=== PATIENT | female | born 1950 | race Caucasian/White ===

== ENCOUNTER 2022-12-12 07:13 | Observation (INO) ==
--- NOTE | 2022-12-06 13:51 | Anesthesiology Consultation ---
Date of Service December 06, 2022 Assessment & Plan (1) Encounter for pre-operative examination: Chart Review Chart Review: Acceptable Risk for Surgery and Patient NOT seen in Pre Admission Testing - Check BSG AM DOS -COVID screening: Per PAT nursing assessment on 12/06/22. No known COVID-19 positive contacts or current COVID-19 related symptoms. Travel screen negative. Patient vaccinated for Covid. At surgeon discretion if preop Covid testing being done. History Surgery Operation Date: 12/12/22 08:40 Proposed Procedures p Robotic Laparoscopic Assisted Partial Nephrectomy, Possible Radical Nephrectomy - Julian Frost MD Height/Weight Height: 5 ft 3 in Weight: 81.647 kg Allergies Allergy/AdvReac Type Severity Reaction Status Date / Time No Known Allergies Allergy Verified 12/06/22 11:47 Medications Home Medications Medication Instructions Recorded Confirmed Last Taken alendronate 70 mg tablet (Fosamax) 70 mg PO WK 07/28/22 12/06/22 Unknown simvastatin 40 mg tablet 40 mg PO QPM #90 tabs 11/21/22 12/06/22 Unknown calcium carbonate 600 mg calcium 600 mg PO HS 12/06/22 12/06/22 Unknown (1,500 mg) tablet (Calcium) cholecalciferol (vitamin D3) 25 2,000 unit PO HS 12/06/22 12/06/22 Unknown mcg (1,000 unit) tablet (Vitamin D3) ezetimibe 10 mg tablet (Zetia) 10 mg PO HS 12/06/22 12/06/22 Unknown ferrous sulfate 325 mg (65 mg 325 mg PO QPM 12/06/22 12/06/22 Unknown iron) tablet glipizide 5 mg tablet 5 mg PO QAM 12/06/22 12/06/22 Unknown irbesartan 75 mg tablet 75 mg PO QPM 12/06/22 12/06/22 Unknown mecobalamin (vitamin B12) 1,000 1,000 mcg PO QPM 12/06/22 12/06/22 Unknown mcg chewable tablet rabeprazole 20 mg tablet,delayed 20 mg PO QAM 12/06/22 12/06/22 Unknown release (AcipHex) sertraline 100 mg tablet 150 mg PO HS 12/06/22 12/06/22 Unknown Past Medical History Medical History (Updated 12/06/22 @ 13:45 by Nereida Flores PA-C) Anemia History of Anxiety Chronic kidney disease, stage 3 (moderate) COPD (chronic obstructive pulmonary disease) Pt denies Depression Dyslipidemia GERD (gastroesophageal reflux disease) HTN (hypertension) Nausea and vomiting after administration of anesthetic agent Osteoporosis Pyloric stenosis Congenital, s/p repair Renal mass Spinal stenosis of lumbar region T2DM (type 2 diabetes mellitus) NIDDM Past Family History Family History Father Colorectal cancer Brother Prostate cancer Heart disease 3 brothers Myocardial infarction Mother Heart disease Uterine cancer Other No family history of adverse response to anesthesia Denies family history of Ovarian cancer Breast cancer Past Surgical History Surgical History History of appendectomy with hernia surgery History of bilateral cataract extraction History of bilateral tubal ligation History of bladder surgery bladder tack History of colonoscopy History of esophagogastroduodenoscopy (EGD) History of partial hysterectomy History of repair of pyloric stenosis History of tooth extraction partial upper/lower dentures Hx of breast reduction, elective 1984 Social History Smoking Status: Never smoker Do You Dip or Chew Tobacco: No Hx Alcohol Use: No Hx Substance Use: No Lab Results Anesthesia Preop Results Results Anesthesia Widget: WBC 5.54 K/ul (4.8-10.8) 11/27/22 Hgb 11.5 g/dl (12.0-16.0) L 11/27/22 Hct 35.9 % (34.1-44.9) 11/27/22 Plt 127 K/uL (130-400) L 11/27/22 Na 139 mmol/L (136-145) 11/27/22 K 4.7 mmol/L (3.5-5.1) 11/27/22 Cl 108 mmol/L (98-107) H 11/27/22 CO2 26 mmol/L (21-32) 11/27/22 BUN 28 mg/dl (6-23) H 11/27/22 Creat 1.09 mg/dl (0.6-1.2) 11/27/22 Glucose Level 154 mg/dl (70-99(Fasting)) H 11/27/22 Urine Color Yellow 11/27/22 Urine Appearance Clear (Clear) 11/27/22 Urine pH 5.5 (4.5-7.5) 11/27/22 Urine Specific [place] 1.019 (1.000-1.030) 11/27/22 Urine Protein Negative (Negative) 11/27/22 Urine Glucose (UA) Negative (Negative) 11/27/22 Urine Ketones Negative (Negative) 11/27/22 Urine Blood Negative (Negative) 11/27/22 Urine Nitrite Negative (Negative) 11/27/22 Urine Bilirubin Negative (Negative) 11/27/22 Urine Urobilinogen Negative (Negative) 11/27/22 Urine Leukocyte Esterase Trace (Negative) H 11/27/22 Urine WBC (Auto) 1-5 /hpf (0-5) 11/27/22 Urine RBC (Auto) 0-4 /hpf (0-4) 11/27/22 Urine Hyaline Casts (Auto) 1-5 /lpf (0-5) 11/27/22 Urine Epithelial Cells (Auto) >30 /lpf (0-5) H 11/27/22 Urine Bacteria (Auto) Negative (Negative) 11/27/22 Testing Laboratory Results Anemia stable from 09/202211/27/22= URINE CULTURE: More than 3 types of organisms present, all low counts probable mixed skin keke Electrocardiogram Date: 11/27/22 Findings: + SB @ (59bpm ) Otherwise normal EKG per cardio. Chest X-Ray Date: 04/28/22 No acute cardiopulmonary findings. Lung hyperinflation may be related to good inspiratory effort or underlying obstructive lung disease. Other Testing Abdomen/Pelvis CT 10/02/22= 3 cm enhancing solid lesion within lower pole of the right kidney. Renal cell carcinoma is the diagnosis of exclusion. No additional enhancing renal lesions. No evidence for metastatic disease within the abdomen or pelvis. Cirrhosis. Mild splenomegaly. Chest CT 10/02/22= No acute intrathoracic abnormality. No definite evidence of thoracic metastatic disease. Mild adenopathy of the lower chest and upper abdomen, likely benign. Cirrhosis with mild splenomegaly.
[~2022-12-12 07:13] MED LIST: ALBUMIN HUMAN 5% 12.5 GM/250 ML VIAL IV ONE; DEXAMETHASONE SOD INJ 4 MG/ML VIAL ONE; LIDOCAINE 2% 2 ML VIAL/AMP(20MG/ML) INFIL ONE; LR 15ML/HR IV SCH; MIDAZOLAM HCL 1 MG/ML 2ML VIAL ONE; ONDANSETRON INJ 2 MG/ML 2 ML VIAL ONE; PROPOFOL IV EMULSION 10 MG/ML 20 ML VIAL IV ONE; ROCURONIUM BROMIDE 10 MG/ML 5 ML VIAL IV ONE; ceFAZolin 2000MG 2,000 MG/15 ML SYR IV SCH; fentaNYL citrate PF 100 MCG/2 ML VIAL ONE
[2022-12-12] MEDS ORDERED: ePHEDrine sulfate 50 MG/ML AMP IV PRN ×2 (08:41→14:35)
[2022-12-12] MEDS ORDERED: HYDROmorphone INJ 2 MG/ML SYR/VIAL IV PRN (08:41)
[2022-12-12] MEDS ORDERED: ATROPINE SULFATE 0.1 MG/ML 10ML SYR IV PRN ×2 (08:41→14:35)
[2022-12-12] MEDS ORDERED: fentaNYL citrate PF 100 MCG/2 ML VIAL IV PRN (08:41)
[2022-12-12] MEDS ORDERED: GELATIN SPONGE SZ 100 ONE (08:49)
[2022-12-12] MEDS ORDERED: BUPIVACAINE 0.5 % 5 MG/1 ML MPF 30ML VIAL ONE (08:49)
--- NOTE | 2022-12-12 08:50 | History & Physical Report ---
Date of Service December 12, 2022 Assessment & Plan (1) Renal mass: (2) Renal mass of unknown nature: Plan We discussed the renal mass on her right kidney and the plan for right partial or radical nephrectomy. We reviewed risks and benefits of the surgery. She expressed understanding and willingness to proceed. History of Present Illness Primary Care Provider: Analia Puga DO This is a 72-year-old female followed by urology for a right-sided renal mass. CT scan demonstrated a lower pole, mostly endophytic mass concerning for renal cell carcinoma. Further staging studies were negative. She presents to the OR today for right robot-assisted partial nephrectomy, possible radical nephrectomy. She denies any changes in her health. Allergies Allergy/AdvReac Type Severity Reaction Status Date / Time No Known Allergies Allergy Verified 12/12/22 07:41 Home Medications Medication Instructions Recorded Confirmed Type alendronate 70 mg tablet (Fosamax) 70 mg PO WK 07/28/22 12/12/22 History simvastatin 40 mg tablet 40 mg PO QPM #90 tabs 11/21/22 12/12/22 Rx calcium carbonate 600 mg calcium 600 mg PO HS 12/06/22 12/12/22 History (1,500 mg) tablet (Calcium) cholecalciferol (vitamin D3) 25 2,000 unit PO HS 12/06/22 12/12/22 History mcg (1,000 unit) tablet (Vitamin D3) ezetimibe 10 mg tablet (Zetia) 10 mg PO HS 12/06/22 12/12/22 History ferrous sulfate 325 mg (65 mg 325 mg PO QPM 12/06/22 12/12/22 History iron) tablet glipizide 5 mg tablet 5 mg PO QAM 12/06/22 12/12/22 History irbesartan 75 mg tablet 75 mg PO QPM 12/06/22 12/12/22 History mecobalamin (vitamin B12) 1,000 1,000 mcg PO QPM 12/06/22 12/12/22 History mcg chewable tablet rabeprazole 20 mg tablet,delayed 20 mg PO QAM 12/06/22 12/12/22 History release (AcipHex) sertraline 100 mg tablet 150 mg PO HS 12/06/22 12/12/22 History Past Med/Surg History Medical History (Updated 12/12/22 @ 08:49 by Julian Frost MD) Anemia History of Anxiety Chronic kidney disease, stage 3 (moderate) COPD (chronic obstructive pulmonary disease) Pt denies Depression Dyslipidemia GERD (gastroesophageal reflux disease) HTN (hypertension) Nausea and vomiting after administration of anesthetic agent Osteoporosis Pyloric stenosis Congenital, s/p repair Renal mass Spinal stenosis of lumbar region T2DM (type 2 diabetes mellitus) NIDDM Surgical History History of appendectomy with hernia surgery History of bilateral cataract extraction History of bilateral tubal ligation History of bladder surgery bladder tack History of colonoscopy History of esophagogastroduodenoscopy (EGD) History of partial hysterectomy History of repair of pyloric stenosis History of tooth extraction partial upper/lower dentures Hx of breast reduction, elective 1984 Family History Father Colorectal cancer Brother Prostate cancer Heart disease 3 brothers Myocardial infarction Mother Heart disease Uterine cancer Other No family history of adverse response to anesthesia Denies family history of Ovarian cancer Breast cancer Social History Smoking Status: Never smoker Second Hand Exposure: Yes; Do You Dip or Chew Tobacco: No; Tobacco Cessation Education Requested by Patient: No Hx Alcohol Use: No Hx Substance Use: No Preferred Language: Surinamese Communication Ability: Effective Visual Impairment: No Limitations Hearing Ability: Hard of Hearing 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 Beliefs That Will Affect Care: None marital status: Current Living Situation: Spouse current occupational status: retired Other Information That Helps Us Care for You: No Feels Safe at Home: Yes Safety Concerns: Feels Safe At This Time Diet Comment: diabetic caffeine: Yes during the past year weight has: remained stable Dental Care, Regularly: Yes Physical Activity Frequency: Daily Seatbelt Use: always Sunscreen Use: Yes Assistive Devices: Denture - Upper, Denture - Lower and Glasses Assistive Devices Comment: partial upper/lower dentures Review of Systems 12 point review of systems negative except for otherwise indicated. Physical Exam Constitutional: well developed and well nourished; no acute distress Eyes: + anicteric sclerae; pupils not irregular Respiratory: normal respiratory effort; no respiratory distress, does not use accessory muscles and no cough Cardiovascular: well perfused Gastrointestinal (Abdomen): Inspection/Auscultation: abdomen normal to inspection; abdomen not distended Musculoskeletal: Extremities: extremities normal to inspection Skin: normal turgor; no rashes and no lesions Neurologic: moves all extremities and awake Psychiatric: Orientation: alert and oriented x 3 Results & Data ([facility]) Vital Signs (Past 12 Hours) Vital Signs Temp Pulse Resp Pulse Ox O2 Del Method 12/12/22 07:46 37.2 C 75 20 97 Room Air
[2022-12-12] MEDS ORDERED: KETAMINE 50 MG/5 ML SYRINGE ONE (09:39)
[2022-12-12] MEDS ORDERED: ROCURONIUM BROMIDE 10 MG/ML 5 ML VIAL IV ONE ×7 (09:41→12:20)
[2022-12-12] MEDS ORDERED: ePHEDrine sulfate 50 MG/ML SYR ONE (09:43)
[2022-12-12] MEDS ORDERED: HYDROmorphone INJ 2 MG/ML SYR/VIAL ONE (10:01)
[2022-12-12] MEDS ORDERED: SODIUM CHLORIDE 0.9% PF INJ 10 ML VIAL ONE (10:03)
[2022-12-12] MEDS ORDERED: ceFAZolin 330 MG/ML 1 GM VIAL ONE (11:43)
[2022-12-12] MEDS ORDERED: SUGAMMADEX SODIUM 200 MG/2 ML VIAL IV ONE (12:30)
[2022-12-12] MEDS ORDERED: SURGICEL ABSORB HEMOSTAT 2IN X 14IN TOP ONE (12:33)
[2022-12-12] MEDS ORDERED: ONDANSETRON INJ 2 MG/ML 2 ML VIAL ONE (12:43)
[2022-12-12] MEDS ORDERED: ceFAZolin 2000MG 2,000 MG/15 ML SYR IV STA (13:06)
[2022-12-12] MEDS ORDERED: fentaNYL citrate PF 100 MCG/2 ML VIAL ONE (13:44)
--- NOTE | 2022-12-12 14:29 | Operative Report ---
PG Post Operative Report Pre & Post Diagnosis Operation Date: 12/12/22 08:40 Pre-Op Diagnosis: Right Renal Mass Post-Op Diagnosis: Right Renal Mass I identified the patient and participated in the time-out.: Yes Procedure Operation Date: 12/12/22 08:40 Actual Procedures p Robotic Laparoscopic Assisted Right Radical Nephrectomy(Right) - Julian Frost MD Surgeon Julian Frost MD Director College BIRDIE Mckeon. Miko Amaro MD Estimated Blood Loss 20 Findings See Below Almost entirely endophytic mass appeared to be extending near the collecting system. Radical nephrectomy was therefore performed. Specimens Right kidney and proximal ureter Drains Mendez catheter per urethra Anesthesia Type General Complications none Disposition Accompanied Patient To Recovery: Yes Disposition: Recovery Room Indications This is a 72-year-old female previously seen by urology for a right-sided renal mass. Due to concern for malignancy, she presents to the OR today for surgical removal of the mass. Description of Procedure The patient was identified and informed consent was obtained. She was marked on the right side and was brought to the operating room where general anesthesia was initiated. She was placed in a flank position with the left side elevated. All pressure points were carefully padded. A timeout was then performed. A surgical marker was used to draw a line approximately 7 cm to the right of the umbilicus, in the mid clavicular area. Anticipated port sites were marked starting approximately 2 fingerbreadths below the costal margin. Subsequent ports were anticipated to be 6 to 7 cm spaced down this line. An incision was made at the second anticipated site, then dissection was carried down to the fascia. A Veress needle was used to obtain access to the peritoneum. Good position was confirmed with a negative aspiration, appropriate drop test and low opening insufflation pressure. The abdomen was then inflated with CO2 to 15 mmHg. The first robotic port was then placed and the camera was inserted. The abdominal cavity was surveyed. There was some adhesions of the ascending colon to the abdominal wall. There was also some flimsy adhesions near the liver and gallbladder. The remaining 3 robotic ports were placed under direct visualization. Laparoscopic lysis of adhesions was performed to free up the cephalad most port. A 12 mm surveyor's assistant port was then placed in the midline above the umbilicus. The robot was then docked. I reflected the colon along the white line of Toldt to expose Gerota's fascia. The layer overlying the kidney was thin and also adherent to Gerota's fascia, so as I was doing the reflection, I exposed the renal capsule as well. Prior to identifying the ureter, the psoas was encountered. The kidney was then retracted anteriorly and dissection carried upward. As I was doing this, the ureter was identified. Dissection was carried toward the renal hilum. There was a lower pole accessory artery and vein encountered. She had 1 main renal artery and 2 nearby renal veins. Adequate windows were dissected to facilitate placement of bulldog clamps on both vessels. I then turned my attention toward the renal mass. This was seen on CT scan near the lower pole of the kidney. Gerota's fascia was incised and the fat was dissected away to expose the capsule of almost the entire lower pole of the kidney. There was no obvious bulge to suggest the renal mass. The intraoperative ultrasound was then introduced and used to survey this area of the kidney. The mass appeared almost entirely endophytic and there was some tunneling of the margins under normal renal parenchyma. The mass appeared to be close to the collecting system. Based on these factors, I was concerned that it be challenging to perform a complete resection of the tumor and then subsequently reconstruction of the kidney. I elected to perform a radical nephrectomy. The [place] stapler was inserted by the surveyor's assistant port. Using vascular staple loads, the main renal artery was divided. The lower pole accessory vessels were subsequently divided. The remaining renal veins were divided last. Another staple load was used to come across the suspected adrenal artery in a cephalad fashion. The remaining attachments of the kidney were then freed up using bipolar and monopolar cautery. The ureter was identified, doubly clipped and divided. The kidney was then freed of all attachments. It was placed in an Endo Catch bag. The renal fossa was inspected. There was good hemostasis. Surgicel was applied to the hilum, the cephalad aspect as well as the lateral aspect. Final survey of the abdomen revealed good hemostasis and no injury to intra-abdominal contents. The robot was dedocked. The string from the Endo Catch bag was withdrawn through the right lower quadrant incision. The incision was then extended to a pproximately 7 cm and dissection was carried down. The peritoneum was entered sharply taking care not to injure any of the intra-abdominal contents. The specimen was extracted and was sent for analysis labeled as right renal mass. The incisions were then closed. The extraction site was closed using a running 2-0 Vicryl suture to reapproximate the peritoneum. Fascia was then closed using interrupted 0 Vicryl [id number]. The fascia and all incisions were anesthetized using half percent Marcaine. 3-0 Vicryl suture was used to reapproximate the subcutaneous fat in a running stitch. Skin was then closed using a running subcuticular 4-0 Monocryl. The surveyor's assistant port site was closed using a deep interrupted 0 Vicryl suture. All skin incisions were then closed using 4 Monocryl. The abdomen was cleaned and Dermabond was applied to all incisions. The patient was then awakened from anesthesia and brought to the PACU in stable condition. All sponge and instrument counts were correct at the end of the case. Of note, BIRDIE Mckeon, acted as bedside surveyor's assistant for the majority of the case, helping with initial positioning, access, retraction, dissection and with closing. Miko Amaro MD acted as bedside surveyor's assistant for the hilar dissection and firing of the stapler. I attest to the content of the Intraoperative Record and any orders documented therein. Any exceptions are noted below.
[2022-12-12] MEDS ORDERED: LABETALOL HCL IV 5 MG/ML 20ML IV ONE (14:35)
[2022-12-12] MEDS ORDERED: LABETALOL HCL IV 5 MG/ML 20ML IV PRN (14:35)
--- NOTE | 2022-12-12 14:36 | Anesthesiology Progress Note ---
Date of Service December 12, 2022 Anesthesia Post Procedure Vital Signs Vital Signs: Temp Pulse Pulse Resp BP Pulse Ox O2 Del Method 12/12/22 14:30 100 H 12 164/72 H 95 Oxymask 12/12/22 14:20 109 H 20 186/86 H 96 Oxymask 12/12/22 14:14 36.2 C L 98 H 18 182/81 H 97 Oxymask 12/12/22 07:46 37.2 C 75 20 97 Room Air O2 Flow Rate 12/12/22 14:30 5 12/12/22 14:20 9 12/12/22 14:14 9 12/12/22 07:46 Transfer of Care Handoff Completed per policy Notes Mental Status: alert / awake / arousable and participated in evaluation Patient Amnestic to Procedure: Yes Nausea / Vomiting: adequately controlled Pain: adequately controlled Airway Patency, RR, SpO2: stable & adequate BP & HR: stable & adequate Hydration State: stable & adequate Anesthetic Complications: no major complications apparent and Pt Satisfied with anesthetic care
[2022-12-12 15:27] LABS: BUN Creatinine Ratio 25.8 (10-20); Calcium 8.3 mg/dl (8.5-10.1); Creatinine Clr Calc Pharmacy 42.8 ml/min; Potassium 4.8 mmol/L (3.5-5.1)
[2022-12-12] MEDS ORDERED: HYDROmorphone INJ 0.5 MG/0.5 ML SYR IV PRN ×2 (15:33)
[2022-12-12] MEDS ORDERED: bisacodyL 5 MG TABEC PO PRN (15:33)
[2022-12-12] MEDS ORDERED: PHARMACY GLYCEMIC MGMT CONSULT PRN (15:33)
[2022-12-12] MEDS ORDERED: oxyCODONE HCL IR 5 MG TAB (IMMEDIATE RELEASE) PO PRN (15:33)
[2022-12-12] MEDS ORDERED: ONDANSETRON INJ 2 MG/ML 2 ML VIAL IV PRN (15:33)
[2022-12-12 15:34] LABS: Hematocrit (blood only) 31.2 % (37.0-47.0); Mean Corpuscular Hemoglobin 28.5 pg (25.0-34.0); Mean Corpuscular Hgb Conc 32.1 g/dL (32.0-36.0); Mean Corpuscular Volume 88.9 fL (80.0-100.0); Mean Platelet Volume 11.4 fL (9.4-12.4); Platelet Count 75 K/uL (130-400); RDW Coefficient of Variation 14.7 % (11.5-14.5); Red Blood Count 3.51 M/uL (4.20-5.40); White Blood Count 6.56 K/ul (4.8-10.8)
[2022-12-12] MEDS ORDERED: GLUCOSE 40% GEL 15 GM TUBE PO PRN (15:45)
[2022-12-12] MEDS ORDERED: CARBOHYDRATES FOR HYPOGLYCEMIA PO PRN (15:45)
[2022-12-12] MEDS ORDERED: GLUCOSE 10 TAB/TUBE PO PRN (15:45)
[2022-12-12] MEDS ORDERED: DEXTROSE 50% 50 ML SYRINGE IV PRN (15:45)
[2022-12-12] MEDS ORDERED: GLUCAGON FOR INJ 1 MG VIAL IM PRN (15:45)
[2022-12-12] MEDS ORDERED: LANTUS PER UNIT CHARGE SQ ONE (16:00)
[2022-12-12] MEDS: ACETAMINOPHEN 325 MG TAB PO SCH ×2 (16:17→20:30)
[2022-12-12] MEDS: oxyCODONE HCL IR 5 MG TAB (IMMEDIATE RELEASE) PO PRN (16:17)
[2022-12-12] MEDS: LACTATED RINGER'S 1,000 ML IV SCH (16:19)
[2022-12-12] MEDS: INSULIN ASPART PER UNIT CHARGE SC SCH ×2 (18:02→22:36)
[2022-12-12] MEDS: ceFAZolin 2000MG 2,000 MG/15 ML SYR IV SCH (18:04)
[2022-12-12] MEDS: DOCUSATE SODIUM 100 MG CAP PO SCH (20:30)
[2022-12-12] MEDS: HEPARIN SOD 5,000 UNIT/0.5 ML VIAL SQ SCH (20:32)
[2022-12-12] MEDS ORDERED: SERTRALINE HCL 50 MG TABLET PO SCH (21:00)
[2022-12-12] MEDS ORDERED: SIMVASTATIN 40 MG TAB PO SCH (21:00)
[2022-12-12] MEDS ORDERED: CALCIUM CARBONATE 1250MG TAB PO SCH (21:00)
[2022-12-12] MEDS ORDERED: FERROUS SULFATE 325 MG TAB PO SCH (21:00)
[2022-12-12] MEDS ORDERED: IRBESARTAN 75 MG TAB PO SCH (21:00)
[2022-12-12] MEDS ORDERED: EZETIMIBE 10 MG TABLET PO SCH (21:00)
[2022-12-12] MEDS ORDERED: CHOLECALCIFEROL 1,000 UNITS 25 MCG TAB PO SCH (21:00)
[2022-12-13] MEDS: LACTATED RINGER'S 1,000 ML IV SCH ×2 (01:27→11:33)
[2022-12-13] MEDS: ceFAZolin 2000MG 2,000 MG/15 ML SYR IV SCH (01:27)
[2022-12-13] MEDS: oxyCODONE HCL IR 5 MG TAB (IMMEDIATE RELEASE) PO PRN (01:33)
[2022-12-13] MEDS: ACETAMINOPHEN 325 MG TAB PO SCH ×2 (04:02→10:40)
--- NOTE | 2022-12-13 07:39 | Urology Progress Note ---
Date of Service December 13, 2022 Assessment & Plan (1) Renal mass of unknown nature: Plan: Doing well s/p right robotic laparoscopic nephrectomy on 12/12/2022. Suspect her shoulder pain is referred from the diaphragm and should resolve as she reabsorbs CO2 We will plan for Mendez catheter removal today She will have breakfast and try to ambulate. If she is still feeling well by this afternoon, we will tentatively plan for discharge home. Admission and Anticipated Discharge Date Admission Date: December 12, 2022 Subjective Feeling well overall Still having some right upper quadrant pain and right shoulder pain Denies incisional tenderness Tolerating food with no nausea or vomiting Has been out of bed to the chair, not much ambulating, mildly lightheaded with his transition Labs pending Physical Exam Physical Exam: Well-appearing, NAD Respiratory: Breathing comfortably on room air Gastrointestinal (Abdomen): Soft, appropriately tender to palpation. Incisions well approximated, Dermabond in place. Slight bruising around the right lower quadrant incision. Genitourinary: Mendez catheter in place draining clear yellow urine Results & Data ([facility]) Vital Signs (Past 12 Hours) Vital Signs Temp Pulse Pulse Resp BP Pulse Ox O2 Del Method 12/13/22 07:17 36.6 C 60 18 109/58 L 95 Room Air 12/13/22 05:47 36.4 C L 65 16 120/62 97 Nasal Cannula 12/13/22 01:51 36.7 C 72 16 135/64 97 Nasal Cannula 12/12/22 20:00 Nasal Cannula 12/12/22 21:53 37 C 75 18 157/84 H 93 Nasal Cannula O2 Flow Rate 12/13/22 07:17 12/13/22 05:47 2 12/13/22 01:51 2 12/12/22 20:00 2 12/12/22 21:53 2 PG Care Time/CCT Total # of Minutes Spent Total Time Spent with Patient: Total time spent is greater than 50% in coordination of care (as documented) at patient's floor/unit and/or counseling patient: Coding Level of Care Code None Diagnoses Renal mass of unknown nature N28.89
[2022-12-13 08:02] LABS: Basophils # (auto) 0.02 K/uL (0-0.2); Basophils % (auto) 0.2 %; Eosinophils # (auto) 0.01 K/uL (0-0.50); Eosinophils % (auto) 0.1 %; Hematocrit (blood only) 30.9 % (37.0-47.0); Hemoglobin 9.9 g/dl (12.0-16.0); Immature Granulocytes # (auto) 0.04 K/uL (0.01-0.20); Immature Granulocytes % (auto) 0.5 %; Lymphocytes # (auto) 1.39 K/uL (1.2-3.4); Lymphocytes % (auto) 16.2 %; Mean Corpuscular Hemoglobin 28.2 pg (25.0-34.0); Mean Platelet Volume 11.5 fL (9.4-12.4); Monocytes # (auto) 0.64 K/uL (0.11-0.59); Monocytes % (auto) 7.5 %; Neutrophils # (auto) 6.49 K/uL (1.40-6.50); Neutrophils % (auto) 75.5 %; Platelet Count 91 K/uL (130-400); Red Blood Count 3.51 M/uL (4.20-5.40); White Blood Count 8.59 K/ul (4.8-10.8)
[2022-12-13 08:08] LABS: Estimated Average Glucose 143 mg/dl; Hemoglobin A1C 6.6 % (4.5-5.6)
[2022-12-13 08:12] LABS: BUN Creatinine Ratio 19.5 (10-20); Calcium 8.3 mg/dl (8.5-10.1); Creatinine Clr Calc Pharmacy 32.4 ml/min; Est GFR (African American) 36.3 ml/min; Est GFR (Non-African American) 31.4 ml/min; Potassium 4.8 mmol/L (3.5-5.1)
[2022-12-13] MEDS: DOCUSATE SODIUM 100 MG CAP PO SCH (08:33)
[2022-12-13] MEDS: HEPARIN SOD 5,000 UNIT/0.5 ML VIAL SQ SCH (08:33)
[2022-12-13] MEDS: INSULIN ASPART PER UNIT CHARGE SC SCH ×2 (08:34→12:35)
[2022-12-13] MEDS ORDERED: PANTOprazole 40 MG TAB PO SCH (09:00)
--- NOTE | 2022-12-13 10:38 | Pharmacy Report ---
Pharmacy Glycemic Short Note 2 - Date of Service December 13, 2022 - Glycemic Short BSG Results (Last 24 hours): 12/12/22 12/12/22 12/12/22 11:12 14:18 14:50 Glucose 236 H POC Glucose 195 H 194 H 12/12/22 12/12/22 12/13/22 17:14 20:58 07:22 Glucose 98 POC Glucose 198 H 125 H 12/13/22 08:11 Glucose POC Glucose 106 H OUTPATIENT ANTIDIABETIC REGIMEN: * Glipizide 5 mg QAM ASSESSMENT: * Abby Izquierdo 72-year-old patient who presents as post-op from a partial nephrectomy for a right-sided renal mass. Patient's last A1C was 6.6% on 11/12/22 and manages their diabetes outpatient with an oral agent (glipizide 5 mg QAM). It appears patient received one dose of IV steroids in the operating room (dexamethasone 4 mg IV once on 12/12/22). A one time dose of Lantus 20 units was given at dinner time yesterday. Bolus insulin parameters were loosened today (CF: 30, CR: 10) PLAN FOR INPATIENT GLYCEMIC CONTROL: * Hold outpatient oral diabetes medications * Basal insulin * Lantus 20 units SQ once at dinner time on 12/12/22 * Bolus insulin * NovoLog per scale ACHS or Q6hrs while NPO * Goal Range: Low 110 mg/dL - High 140 mg/dL * Correction Factor: 30 mg/dL/unit * Nutritional / Prandial insulin per carb ratio of 1 unit per 10 grams CHO consumed
--- NOTE | 2022-12-13 12:20 | Discharge Summary ---
Date of Service December 13, 2022 Admission HPI Per Admitting Provider This is a 72-year-old female followed by urology for a right-sided renal mass. CT scan demonstrated a lower pole, mostly endophytic mass concerning for renal cell carcinoma. Further staging studies were negative. She presents to the OR today for right robot-assisted partial nephrectomy, possible radical nephrectomy. She denies any changes in her health. Admission Exam Per Admitting Provider Physical Exam Constitutional: well developed and well nourished; no acute distress Eyes: + anicteric sclerae; pupils not irregula r Respiratory: normal respiratory effort; no respiratory distress, does not use accessory muscles and no cough Cardiovascular: well perfused Gastrointestinal (Abdomen): Inspection/Auscultation: abdomen normal to inspection; abdomen not distended Musculoskeletal: Extremities: extremities normal to inspection Skin: normal turgor; no rashes and no lesions Neurologic: moves all extremities and awake Psychiatric: Orientation: alert and oriented x 3 Principal Diagnosis Renal Mass Discharge Exam Physical Exam: Well-appearing, NAD Respiratory: Breathing comfortably on room air Gastrointestinal (Abdomen): Soft, appropriately tender to palpation. Incisions well approximated, Dermabond in place. Slight bruising around the right lower quadrant incision. Genitourinary: Mendez catheter in place draining clear yellow urine Discharge Data Allergies Allergy/AdvReac Type Severity Reaction Status Date / Time No Known Allergies Allergy Verified 12/12/22 07:41 Procedures Performed Operation Date: 12/12/22 08:40 Actual Procedures p Robotic Laparoscopic Assisted Right Radical Nephrectomy(Right) - Julian aburto MD Hospital Course (1) Renal mass of unknown nature: Doing well s/p right robotic laparoscopic nephrectomy on 12/12/2022. Suspect her shoulder pain is referred from the diaphragm and should resolve as she reabsorbs CO2 We will plan for Mendez catheter removal today She will have breakfast and try to ambulate. If she is still feeling well by this afternoon, we will tentatively plan for discharge home. Patient reassessed at 1100. Patient continues to progress as expected. She is tolerating diet. Voided after catheter removal. Pain is well managed. Patient feels ready for discharge today - orders placed. Expected clinical course reviewed, all questions answered. Total Time Total Time Spent Total Time Spent (In Minutes): 29 Discharge Plan Discharge Items Patient Disposition: Home - Self-Care Reason For Visit: Renal Mass Discharge Diagnosis: Right renal mass, concerning for malignancy Activity: Per Instructions section Lifting: No more than 10 pounds Bathing Comment: Okay to shower after discharge Sexual Activity: Wait until after follow-up appointment Exercise/Sports: Wait until after follow-up appointment Driving/Machine Use: No driving while taking prescription pain medication Non-emergency contact: Urologist Call non-emergency contact if: you have any medication questions, your pain is not controlled, your temperature is above 101 and your wound has increased drainage Follow-up/Referrals: Analia Puga, [Primary Care Provider] - Diet: Carb Consistent or DM2 Addtl Attending Provider Instructions: The surgery you had was: Robot-assisted radical nephrectomy Please take all medications as prescribed and keep all follow-ups as scheduled. Please call our office at [phone] with any questions, concerns or need to reschedule appointments for any reason. We are happy to assist you. Medications: Take Tylenol every 6 hours for baseline pain control If you are prescribed narcotics such as oxycodone, please take it according to the instructions on the label. Activity/Recovering at home: We recommend having someone with you for the first few days after surgery to help care for you. It is okay to shower tomorrow. Please avoid swimming, bathing or using hot tub until incisions are well healed. Avoid driving until you are not requiring pain medication any further. Walk at least a few times a day. Increase your distance, as you feel able. Stairs in your home are okay. Please avoid strenuous or sexual activity until your follow-up. No lifting anything more than 10 pounds for 6 to 8 weeks Use a stool softener (i.e. Colace) to prevent constipation, especially the first two weeks post operatively. You should not be straining/pushing to have a bowel movement. Follow-up: We will have a phone visit or office visit in 1 week to go over pathology results and check in We will have you come to the urology office in 4-6 weeks for a wound check. Call [facility] at [phone] if you experience: Chest pain or trouble breathing (call [phone] or go to the hospital). Fever of 101F or higher Symptoms of infection at incision site, including redness or swelling, warmth, or bad-smelling drainage Pain that is not controlled with medicines Pending Studies at Discharge: Yes (pathology) Stand-Alone Forms: My [facility], Pain - Opioid Pain Management Medications and DC Order Prescriptions: New docusate sodium [Colace] 100 mg capsule 100 mg PO BID Qty: 60 0RF Rx Instructions: Take twice daily for 2 weeks, then as needed for constipation. oxycodone 5 mg tablet 5 mg PO Q8H PRN (Reason: pain) Qty: 7 0RF Rx Instructions: take as directed for breakthrough pain Continued simvastatin 40 mg tablet 40 mg PO QPM Qty: 90 0RF alendronate [Fosamax] 70 mg tablet 70 mg PO WK Label Comments: takes on rabeprazole [AcipHex] 20 mg tablet,delayed release (DR/EC) 20 mg PO QAM sertraline 100 mg tablet 150 mg PO HS Rx Instructions: TAKE 1.5 TABS DAILY ferrous sulfate 325 mg (65 mg iron) tablet 325 mg PO QPM irbesartan 75 mg tablet 75 mg PO QPM glipizide 5 mg tablet 5 mg PO QAM ezetimibe [Zetia] 10 mg tablet 10 mg PO HS mecobalamin (vitamin B12) 1,000 mcg tablet,chewable 1,000 mcg PO QPM calcium carbonate [Calcium 600] 600 mg calcium (1,500 mg) Tablet 600 mg PO HS cholecalciferol (vitamin D3) [Vitamin D3] 25 mcg (1,000 unit) Tablet 2,000 unit PO HS Discharge Orders: Discharge Order (Routine); Ordered 12/13/22 Ordered By: Em Miller/Other Patient Handouts: Managing Type 2 Diabetes, Nephrectomy Dc Admission Data Admit Date/Time: 12/12/22 14:03 Attending Provider: Julian Frost Admit Provider: Julian Frost Primary Care Provider: Analia Puga Other Interventions: Discharge Summary Assessment (RN) Last Done: 12/13/22 12:49 Coding Level of Care Code HOSP INP/OBS DISCH 30 MIN/LESS Diagnoses Renal mass of unknown nature N28.89
== END 2022-12-13 14:16 | disposition home or self-care (01) ==
LOC: ASU 07:13 → 3N 14:03 → INTOOBSV 14:03
DX: C64.1 Malignant neoplasm of right kidney, except renal pelvis; Z80.42 Family history of malignant neoplasm of prostate; Z80.0 Family history of malignant neoplasm of digestive organs; Z79.899 Other long term (current) drug therapy; Z82.49 Family history of ischemic heart disease and other diseases of the circulatory system

== ENCOUNTER 2025-01-13 05:58 | Observation (INO) ==
--- NOTE | 2024-12-16 16:17 | PAT Medication Instructions ---
Medication Instructions Date of Service December 16, 2024 Home Medications Medication Instructions Recorded albuterol sulfate 90 mcg/actuation See Rx Instructions inhalation 04/01/24 aerosol inhaler (Ventolin HFA) .COMPLEX PRN shortness of breath or wheezing #18 grams tramadol 50 mg tablet 50 mg PO Q8H PRN pain #30 tabs 04/01/24 empagliflozin 10 mg tablet 10 mg PO QAM #90 tabs 06/27/24 (Jardiance) simvastatin 40 mg tablet 40 mg PO QPM #90 tabs 08/18/24 ezetimibe 10 mg tablet (Zetia) 10 mg PO HS #90 tabs 09/03/24 walker #1 ea 10/13/24 duloxetine 30 mg capsule,delayed 30 mg PO DAILY #90 caps 10/21/24 release rabeprazole 20 mg tablet,delayed 20 mg PO QAM #90 tabs 12/15/24 release (AcipHex) anastrozole 1 mg tablet 1 mg PO QAM vitamins A,C,O-eqll-huwybh 4,296 mcg-226 mg-90 mg capsule (PreserVision AREDS) 1 cap PO BID ferrous sulfate 325 mg (65 mg iron) tablet 325 mg PO DAILY albuterol sulfate 90 mcg/actuation aerosol inhaler (Ventolin HFA) See Rx Instructions inhalation .COMPLEX PRN shortness of breath or wheezing tramadol 50 mg tablet 50 mg PO Q8H PRN pain empagliflozin 10 mg tablet (Jardiance) 10 mg PO QAM simvastatin 40 mg tablet 40 mg PO QPM ezetimibe 10 mg tablet (Zetia) 10 mg PO HS calcium citrate 500 mg (2,376 mg) effervescent tablet 1,200 mg PO DAILY duloxetine 30 mg capsule,delayed release 30 mg PO DAILY mecobalamin (vitamin B12) 1,000 mcg chewable tablet 1,000 mcg PO .QOD sodium zirconium cyclosilicate 10 gram oral powder packet (Lokelma) 10 g PO .COMPLEX cholecalciferol (vitamin D3) 25 mcg (1,000 unit) capsule 25 mcg PO DAILY d-mannose 3 cap PO DAILY rabeprazole 20 mg tablet,delayed release (AcipHex) 20 mg PO QAM Continue as directed duloxetine 30 mg capsule,delayed release 30 mg PO DAILY ASK your prescriber and surgeon anastrozole 1 mg tablet 1 mg PO QAM STOP taking 2 weeks before surgery vitamins A,C,U-pvot-svijan 4,296 mcg-226 mg-90 mg capsule (PreserVision AREDS) 1 cap PO BID d-mannose 3 cap PO DAILY STOP taking 3 days before surgery empagliflozin 10 mg tablet (Jardiance) 10 mg PO QAM DO NOT take the morning of surgery ferrous sulfate 325 mg (65 mg iron) tablet 325 mg PO DAILY calcium citrate 500 mg (2,376 mg) effervescent tablet 1,200 mg PO DAILY mecobalamin (vitamin B12) 1,000 mcg chewable tablet 1,000 mcg PO .QOD sodium zirconium cyclosilicate 10 gram oral powder packet (Lokelma) 10 g PO .COMPLEX cholecalciferol (vitamin D3) 25 mcg (1,000 unit) capsule 25 mcg PO DAILY Take morning of surgery With a small sip of water, OTHERWISE NOTHING TO EAT OR DRINK AFTER MIDNIGHT: albuterol sulfate 90 mcg/actuation aerosol inhaler (Ventolin HFA) See Rx Instructions inhalation .COMPLEX PRN shortness of breath or wheezing (use if needed; please bring with you to hospital day of surgery if possible) tramadol 50 mg tablet 50 mg PO Q8H PRN pain (if needed) rabeprazole 20 mg tablet,delayed release (AcipHex) 20 mg PO QAM Take evening before surgery albuterol sulfate 90 mcg/actuation aerosol inhaler (Ventolin HFA) See Rx Instructions inhalation .COMPLEX PRN shortness of breath or wheezing (if needed) tramadol 50 mg tablet 50 mg PO Q8H PRN pain (if needed) simvastatin 40 mg tablet 40 mg PO QPM ezetimibe 10 mg tablet (Zetia) 10 mg PO HS Other Notes If you have any questions please call us at [phone] or [phone] or [phone] or [phone]
--- NOTE | 2024-12-24 14:01 | Anesthesiology Consultation ---
Date of Service December 24, 2024 Assessment & Plan (1) Encounter for pre-operative examination: Plan - check BSG am DOS. - PCP office note 12/14/24 [place]: "...Hypotension: Resolved w/ holding irbesartan. Reviewed her BP readings all in good range, normal BP in office today. Will remain off irbestartan...Dizziness: Resovled. Related to low BP, care as above. Syncope: Resolved. Likely vasovagal in setting of low BP. reviewed echo and heart monitor results with patient today in office...scheduled for lumbar laminectomy 01/13/35...acceptable risk to proceed with surgery pending normal preop testing..." BP 136/63 at PCP office visit. 108/62 in PAT. Patient called office and said home reading was 122/65 this afternoon, usually running 120- 130s/60s at home. - hair piece: patient inquired if this needed to not be on for DOS, I advised her that was the recommendation but if unable to coordinate this, the OR would further discuss and likely have her sign a waiver. She verbalized understanding and denied questions or concerns. Chart Review Chart Review: Acceptable Risk for Surgery and Patient seen in Pre Admission Testing Teaching & Discussion Pre-Anesthesia Teaching/Discussion Notes: Instructed NPO after midnight before surgery, except medications with 15 cc of water. Medication instructions provided according to the PAT guidelines. History Surgery Operation Date: 01/13/25 07:15 Proposed Procedures p L1-L2, L4-L5 Lumbar Laminectomy - Hari Freed MD Height/Weight Height: 5 ft 3 in Weight: 70.8 kg Allergies Allergy/AdvReac Type Severity Reaction Status Date / Time acetaminophen [From Percocet] AdvReac Intermediate nausea and Verified 12/24/24 13:55 vomiting oxycodone [From Percocet] AdvReac Intermediate nausea and Verified 12/24/24 13:55 vomiting amoxicillin [From Augmentin] AdvReac Unknown Diarrhea Unverified 12/24/24 12:09 clavulanic acid AdvReac Unknown Diarrhea Unverified 12/24/24 12:09 [From Augmentin] Medications Home Medications Medication Instructions Recorded Confirmed Last Taken Citus Data true metrix test strips 09/10/23 12/24/24 Unknown anastrozole 1 mg tablet 1 mg PO QAM 12/06/23 12/24/2424 vitamins A,C,B-meko-zxopgx 4,296 1 cap PO BID 12/06/23 12/24/24 12/19/23 mcg-226 mg-90 mg capsule (PreserVision AREDS) ferrous sulfate 325 mg (65 mg 325 mg PO DAILY 01/22/24 12/24/24 Unknown iron) tablet albuterol sulfate 90 mcg/actuation See Rx Instructions inhalation 04/01/24 12/24/24 Unknown aerosol inhaler (Ventolin HFA) .COMPLEX PRN shortness of breath or wheezing #18 grams tramadol 50 mg tablet 50 mg PO Q8H PRN pain #30 tabs 04/01/24 12/24/24 Unknown empagliflozin 10 mg tablet 10 mg PO QAM #90 tabs 06/27/24 12/24/24 Unknown (Jardiance) simvastatin 40 mg tablet 40 mg PO QPM #90 tabs 08/18/24 12/24/24 Unknown ezetimibe 10 mg tablet (Zetia) 10 mg PO HS #90 tabs 09/03/24 12/24/24 Unknown calcium citrate 500 mg (2,376 mg) 1,200 mg PO DAILY 09/15/24 12/24/24 Unknown effervescent tablet walker #1 ea 10/13/24 12/24/24 Unknown duloxetine 30 mg capsule,delayed 30 mg PO DAILY #90 caps 10/21/24 12/24/24 Unknown release mecobalamin (vitamin B12) 1,000 1,000 mcg PO .QOD 11/18/24 12/24/24 Unknown mcg chewable tablet sodium zirconium cyclosilicate 10 10 g PO .COMPLEX 11/18/24 12/24/24 Unknown gram oral powder packet (Lokelma) cholecalciferol (vitamin D3) 25 25 mcg PO DAILY 11/26/24 12/24/24 Unknown mcg (1,000 unit) capsule d-mannose 3 cap PO DAILY 12/12/24 12/24/24 Unknown rabeprazole 20 mg tablet,delayed 20 mg PO QAM #90 tabs 12/15/24 12/24/24 Unknown release (AcipHex) Past Medical History Medical History (Updated 12/24/24 @ 14:53 by Nida Inman PA-C) 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 Anxiety Chronic kidney disease (CKD), stage IV (severe) COPD (chronic obstructive pulmonary disease) pt denies- states rare use of rescue inhaler, mostly if "hot and humid" last used several yrs ago per pt Depression Diabetes DISH (diffuse idiopathic skeletal hyperostosis) Dyslipidemia Episode of syncope 11/13/24 > was seen at [place] [facility] >> r/t hypotension >> eval by pcp, hypertensive medications discontinued, no issues since GERD (gastroesophageal reflux disease) controlled, stable per pt History of anemia History of blood transfusion reaction (~1984) patient states was stopped due to sudden fever and extensive rash History of COVID-19 (~10/2023) 11/06/23, home test, lingering occasional cough History of hypertension History of renal cell cancer treated surgically. Right nephrectomy 12/12/22 [facility]. Hx of breast cancer (2022) left-denies limb restriction Nausea and vomiting after administration of anesthetic agent does well with IV predosing Osteoarthritis Osteoporosis Peripheral neuropathy hands and feet Scoliosis of lumbar spine Solitary kidney, acquired left Thrombocytopenia chronic to chart review Patient denies h/o stroke, seizures, heart attack, heart failure, or blood clots/DVTs. Exercise / Class Metabolic Activity II 4-5 Yardwork/Stairs/Walk up hill (occasional shortness of breath if experiencing increased back pain, denies chest discomfort with one flight of stairs) Past Family History Family History Father Colorectal cancer Cancer Heart disease Hypertension Brother Prostate cancer Myocardial infarction Heart disease Cancer Prostate Mother Uterine cancer Cancer Uterine Heart disease Daughter Clotting disorder Grandmother Diabetes Other No family history of adverse response to anesthesia Denies family history of Ovarian cancer Breast cancer Past Surgical History Surgical History (Updated 12/24/24 @ 14:53 by Nida Inman PA-C) History of appendectomy with hernia surgery History of bilateral cataract extraction History of bilateral tubal ligation History of bladder surgery bladder tack History of colonoscopy History of esophagogastroduodenoscopy (EGD) History of nephrectomy right History of partial hysterectomy History of repair of pyloric stenosis infancy History of tooth extraction partial upper/lower dentures Hx of breast reduction, elective 1984 Status post left breast lumpectomy (10/22/23) Left Breast Lumpectomy with Cassie Rn Transport, Left [place] Lymph Node Biopsy(Left) - Shandra Celis DO Status post left breast lumpectomy (12/20/23) Left Breast Cancer Re-Excision of Margins(Left) - Shandra Celis, Past Anesthesia History No Hx of Anesthesia Complications and No Family Hx of Anesthesia Complications History of PONV No Hx of Motion Sickness and History of PONV (does well with IV pre-dosing) Social History Smoking Status: Never smoker Do You Dip or Chew Tobacco: No Hx Alcohol Use: No Hx Substance Use: No substance use type: does not use Review of Systems Snoring, denies witnessed apneas. Denies fever, chills, cough, wheezing, dizziness/lightheadedness, visual changes or palpitations. Physical Exam Vital Signs Vitals BP 108/62 P 65 TEMP 98.0 SP02 96% on RA RESP 19 Physical Patient resting comfortably in chair in no acute distress, alert and oriented, responding appropriately throughout visit Full cervical extension range of motion without pain TMD 3.5 finger breadths Mallampati Score 2 Dentition: upper partial and full lower dentures, denies chipped or loose teeth, caps/crowns, implants or bridges Lungs: normal respiratory effort. Good air movement, clear throughout to auscultation, no adventitious breath sounds Cardiac: regular rate and rhythm, no murmurs noted Carotid arteries: negative bruit bilat Lab Results Anesthesia Preop Results Results Anesthesia Widget: WBC 4.94 K/ul (4.8-10.8) 11/18/24 Hgb 11.7 g/dl (12.0-16.0) L 11/18/24 Hct 35.4 % (37.0-47.0) L 11/18/24 Plt 119 K/uL (130-400) L 11/18/24 Na 140 mmol/L (136-145) 11/18/24 K 4.6 mmol/L (3.5-5.1) 11/18/24 Cl 106 mmol/L (98-107) 11/18/24 CO2 27 mmol/L (21-32) 11/18/24 BUN 37 mg/dl (6-23) H 11/18/24 Creat 1.79 mg/dl (0.6-1.2) H 11/18/24 Glucose Level 105 mg/dl (70-99(Fasting)) H 11/18/24 PT 11.3 Seconds (9.0-12.0) 12/24/24 PTT 25 Seconds (21-31) 12/24/24 INR 1.0 (0.9-1.1) 12/24/24 HA1c 6.2 % (4.5-5.6) H 12/24/24 Blood Type A Positive 12/24/24 Antibody Screen NEGATIVE 12/24/24 Testing Chest X-Ray Date: 11/13/24 *1view* No plain film evidence of an acute cardiopulmonary process. Echocardiogram Date: 12/04/24 EF 55-60% No LV regional wall motion abnormalities Mild mitral regurgitation Other Testing Cardiac event monitor 12/10/24 Primary rhythm was sinus rhythm HR min 52 bpm, avg 68 bpm, max 152 bpm SVE burden 0.2% SV arrhythmias 36 events, longest 9 beats, fastest event 152 bpm PVC burden < 0.01% 2 disparate morphologies Carotid doppler 12/04/24 > 50% stenosis ICAs bilat
[2025-01-13] MEDS: LR 60ML/HR IV SCH (06:36)
[2025-01-13] MEDS: ACETAMINOPHEN 500 MG TAB PO SCH (06:37)
[2025-01-13] MEDS: GABAPENTIN 300 MG CAP PO SCH (06:37)
[2025-01-13] MEDS: LR 15ML/HR IV SCH (06:37)
[2025-01-13] MEDS ORDERED: MIDAZOLAM HCL 1 MG/ML 2ML VIAL ONE (06:58)
[2025-01-13] MEDS ORDERED: ROCURONIUM BROMIDE 10 MG/ML 5 ML VIAL IV ONE (06:58)
[2025-01-13] MEDS ORDERED: REMIFENTANIL HCL 1 MG VIAL IV ONE (06:58)
[2025-01-13] MEDS ORDERED: fentaNYL citrate PF 100 MCG/2 ML VIAL ONE (06:58)
[2025-01-13] MEDS ORDERED: LIDOCAINE 2% 2 ML VIAL/AMP(20MG/ML) INFIL ONE (07:02)
[2025-01-13] MEDS ORDERED: LIDOCAINE 2% 20 MG/ML 5 ML SYR IV ONE (07:03)
--- NOTE | 2025-01-13 07:13 | History & Physical Bridge Note ---
Date of Service January 13, 2025 History & Physical Bridge Note I have examined the patient, reviewed the History & Physical and in the interval since the performance of the History & Physical I have noted the following changes of clinical significance: no changes noted
[2025-01-13] MEDS ORDERED: HYDROmorphone INJ 2 MG/ML SYR/VIAL ONE (07:39)
[2025-01-13] MEDS: ceFAZolin 2000MG 2,000 MG/15 ML SYR IV SCH (07:40)
[2025-01-13] MEDS ORDERED: DEXAMETHASONE SOD INJ 4 MG/ML VIAL ONE (08:10)
[2025-01-13] MEDS ORDERED: SUGAMMADEX SODIUM 200 MG/2 ML VIAL IV ONE (08:41)
[2025-01-13] MEDS ORDERED: ONDANSETRON INJ 2 MG/ML 2 ML VIAL ONE (08:41)
[2025-01-13] MEDS: FLOSEAL HEMOSTATIC MATRIX 10ML TOP ONE (10:55)
[2025-01-13] MEDS: VANCOMYCIN HCL 1000MG/20ML VIAL ONE (10:55)
[2025-01-13] MEDS: THROMBIN 5000 UNITS KIT ONE (10:56)
[2025-01-13] MEDS: GELATIN SPONGE 12-7MM ONE (10:56)
[2025-01-13] MEDS: methylPREDNISolone acetate 40 MG/ML VIAL ONE (10:56)
[2025-01-13] MEDS: BUPIVACAINE/EPINEPHRINE 0.5% MPF 1:200,000 30 ML VIAL ONE (10:57)
--- NOTE | 2025-01-13 11:23 | Post Operative Brief Note ---
PG Immediate Post Op with CF Date of Surgery January 13, 2025 Pre & Post Diagnosis Operation Date: 01/13/25 07:30 Pre-Op Diagnosis: Lumbar stenosis with neurogenic claudication Post-Op Diagnosis: Lumbar stenosis with neurogenic claudication I identified the patient and participated in the time-out.: Yes Procedure Operation Date: 01/13/25 07:30 Actual Procedures p L1-L2, L2-L3, L4-L5 Lumbar Laminectomy(Not Applicable) - Hari Freed MD Surgeon Hari Freed MD Information Systems Security Manager Sumanth Blanton Estimated Blood Loss 100 Findings Consistent with Post-Op Diagnosis Specimens Specimen Description: No specimen per surgeon Drains Tate Catheter (16fr tate inserted without difficulty prior to procedure by Isabella Cox RN. Yellow urine noted. To be discontinued at end of procedure.)
[2025-01-13] MEDS ORDERED: HYDROmorphone INJ 0.5 MG/0.5 ML SYR IV PRN (11:25)
[2025-01-13] MEDS ORDERED: NALOXONE HCL 0.4 MG/1 ML VIAL/CARP IV PRN (11:25)
[2025-01-13] MEDS ORDERED: ONDANSETRON 4 MG OD TAB PO PRN (11:25)
[2025-01-13] MEDS ORDERED: PROMETHAZINE 12.5 MG/50.5 ML BAG IV PRN (11:25)
[2025-01-13] MEDS ORDERED: hydrOXYzine HCl 25 MG TAB PO PRN (11:25)
[2025-01-13] MEDS ORDERED: ALUMINUM/MAGNESIUM SUSP 30 ML UDC PO PRN (11:25)
[2025-01-13] MEDS ORDERED: MAGNESIUM HYDROXIDE SUSP 30 ML UDC PO PRN (11:25)
[2025-01-13] MEDS ORDERED: bisacodyL 10 MG SUPP PR PRN (11:25)
[2025-01-13] MEDS ORDERED: METOCLOPRAMIDE HCL INJ 5 MG/ML 2 ML VIAL IV PRN (11:25)
[2025-01-13] MEDS ORDERED: DO NOT ADMINISTER PNEUMOCOCCAL VACCINE PRN (11:25)
[2025-01-13] MEDS ORDERED: ACETAMINOPHEN 500 MG TAB PO PRN (11:25)
[2025-01-13] MEDS ORDERED: LORazepam 2 MG/1 ML VIAL IV PRN (11:25)
[2025-01-13] MEDS ORDERED: SOD PHOSPHATE/SOD BIPHOSPHATE ENEMA 132 ML BTL PR PRN (11:25)
[2025-01-13] MEDS ORDERED: ACETAMINOPHEN 1,000 MG/100 ML VIAL IV PRN (11:25)
[2025-01-13] MEDS ORDERED: DO NOT ADMINISTER FLU VACCINE PRN (11:25)
[2025-01-13] MEDS ORDERED: LORazepam 0.5 MG TAB PO PRN (11:25)
[2025-01-13] MEDS ORDERED: diphenhydrAMINE Capsule 25 MG CAP PO PRN (11:25)
[2025-01-13] MEDS ORDERED: FAMOTIDINE 20 MG TAB PO PRN (11:25)
[2025-01-13] MEDS ORDERED: ATROPINE SULFATE 0.1 MG/ML 10ML SYR IV PRN (11:31)
[2025-01-13] MEDS ORDERED: PROMETHAZINE HCL 6.25 MG in SODIUM CHLORIDE 0.9% 50 ML IV PRN (11:31)
[2025-01-13] MEDS: fentaNYL citrate PF 100 MCG/2 ML VIAL IV PRN (11:31)
[2025-01-13] MEDS ORDERED: ePHEDrine sulfate 50 MG/ML AMP IV PRN (11:31)
[2025-01-13] MEDS ORDERED: ONDANSETRON INJ 2 MG/ML 2 ML VIAL IV PRN (11:31)
--- NOTE | 2025-01-13 11:43 | Fluoroscopy Report ---
FL spine 1V any level CLINICAL HISTORY: L1-L2, L4-L5 LUMBAR LAMINECTOMY COMPARISON STUDY: MR lumbar spine 11/23/2024 FLUOROSCOPY TIME: 46.6 seconds FLUOROSCOPY IMAGES: 4 EXPOSURE DOSE: 26.37 mGy FINDINGS: Retractors project over the upper lumbar spine. A surgical sponge projects posterior to the L5-S1 junction. Multilevel intervertebral disc space narrowing and spondylotic spurring redemonstrat ed. Note that the images were submitted following completion of the surgery. IMPRESSION: Fluoroscopic assistance as above. ACT 112: Negative or not required by law. Electronically signed by: Stanton Bueno M.D. 01/13/2025 11:41 AM
[2025-01-13] MEDS: HYDROmorphone INJ 2 MG/ML SYR/VIAL IV PRN (12:02)
[2025-01-13] MEDS: fentaNYL citrate PF 100 MCG/2 ML VIAL ONE (12:10)
[2025-01-13] MEDS ORDERED: ALBUTEROL HFA 8 GM INHALER INH PRN (12:58)
[2025-01-13] MEDS ORDERED: WALKER SCH (12:58)
[2025-01-13] MEDS: HYDROmorphone INJ 2 MG/ML SYR/VIAL ONE (13:06)
--- NOTE | 2025-01-13 13:11 | Consultation ---
Date of Consultation January 13, 2025 Assessment & Plan (1) Lumbar stenosis with neurogenic claudication: s/p L1-L2, L2-L3, L4-L5 Lumbar Laminectomy by Dr Freed today. Stable from medical standpoint post-op. BSGs <200 even with IV steroids given luis carlos-operatively. Defer pain management, disposition/discharge planning to primary ortho team. Plan to check CBC and BMP in am given her chronic thrombocytopenia & CKD to ensure stability. Pt reports tendencies towards constipation - primary team has ordered miralax and senna/colace. (2) T2DM (type 2 diabetes mellitus): most recent Hba1c was 6.2% earlier in 2024. she is only on Jardiance at home. ok to hold while here and will add loose novolog SSI with BSG checks ac/hs. DM diet. anticipate some high readings next 24 hours in light of Dexamethasone usage & luis carlos-operative stress. add basal insulin if necessary. (3) HTN (hypertension): Patient previously too medicines for such but these were stopped after she was developing hypotension. BPs high post-op, but suspect this is due to pain. I anticipate her BPs will settle down and normalize with time and with pain control. Simply follow/trend the BPs. BMP am. (4) Thrombocytopenia: h/o chronic low platelets baseline is low 100s chronic ITP? other? previous B12/folate levels in the past have been normal repeat CBC in am for stability (5) Chronic kidney disease, stage 4 (severe): baseline Cr ~1.5 to 2, with most readings 1.7 or 1.8. repeat BMP in am for stability. of note - she has solitary left kidney as she had a nephrectomy in the past on the right for renal cell cancer. (6) GERD (gastroesophageal reflux disease): cont pantoprazole 40mg daily pepcid prn (7) Dyslipidemia: can continue zetia; hold statin - can resume statin at d/c (8) COPD (chronic obstructive pulmonary disease): mild she is not on controller agents chronically albuterol prn lungs clear post-op o2 sats wnl post-op (9) History of renal cell cancer: right kidney s/p nephrectomy in the past BMP am for stability (10) Solitary left kidney: right nephrectomy in the past for renal cell ca; see above Plan family updated at bedside on role of hospitalist team Thank you for this consult. Hospitalist team will follow with you. History of Present Illness Requesting Physician: Hari Freed MD Reason for Consultation: post-op medical management Attending Physician: Hari Freed MD History of Present Illness 74yo female with history of HTN, CKD stage 3b/4, chronic thrombocytopenia (low 100s), solitary kidney due to right nephrectomy for renal cell ca, prior h/o breast ca, GERD, mild COPD, and type 2 diabetes who presented today for elective lumbar back surgery by Dr Freed. Specifically, due to severe lumbar spine stenosis, she underwent L1-L2, L2-L3, and L4-L5 laminectomy. I saw Ms Izquierdo post-op on the orthopedic floor. She was resting comfortably in bed. Denied any dyspnea, chest pain, nausea, emesis or abdominal pain. She did c/o mild throat discomfort and dry mouth. She denies any recent illnesses leading up to this admission. Operative note was reviewed - estimated blood loss was 100ml. Of note - pt did receive a dose of dexamethasone 4mg x 1 luis carlos-operatively. Allergies Allergy/AdvReac Type Severity Reaction Status Date / Time acetaminophen [From Percocet] AdvReac Intermediate nausea and Verified 01/13/25 06:09 vomiting oxycodone [From Percocet] AdvReac Intermediate nausea and Verified 01/13/25 06:09 vomiting amoxicillin [From Augmentin] AdvReac Unknown Diarrhea Verified 01/13/25 06:09 clavulanic acid AdvReac Unknown Diarrhea Verified 01/13/25 06:09 [From Augmentin] Home Medications Medication Instructions Recorded Confirmed Type Yell.ruson true metrix test strips 09/10/23 12/24/24 History vitamins A,C,Q-arnj-vywckc 4,296 1 cap PO BID 12/06/23 01/13/25 History mcg-226 mg-90 mg capsule (PreserVision AREDS) ferrous sulfate 325 mg (65 mg 325 mg PO DAILY 01/22/24 01/13/25 History iron) tablet albuterol sulfate 90 mcg/actuation See Rx Instructions inhalation 04/01/24 01/13/25 Rx aerosol inhaler (Ventolin HFA) .COMPLEX PRN shortness of breath or wheezing #18 grams tramadol 50 mg tablet 50 mg PO Q8H PRN pain #30 tabs 04/01/24 01/13/25 Rx empagliflozin 10 mg tablet 10 mg PO QAM #90 tabs 06/27/24 01/13/25 Rx (Jardiance) simvastatin 40 mg tablet 40 mg PO QPM #90 tabs 08/18/24 01/13/25 Rx ezetimibe 10 mg tablet (Zetia) 10 mg PO HS #90 tabs 09/03/24 01/13/25 Rx calcium citrate 500 mg (2,376 mg) 1,200 mg PO DAILY 09/15/24 01/13/25 History effervescent tablet walker #1 ea 10/13/24 12/24/24 Rx duloxetine 30 mg capsule,delayed 30 mg PO DAILY #90 caps 10/21/24 01/13/25 Rx release mecobalamin (vitamin B12) 1,000 1,000 mcg PO .QOD 11/18/24 01/13/25 History mcg chewable tablet sodium zirconium cyclosilicate 10 10 g PO .COMPLEX 11/18/24 01/13/25 History gram oral powder packet (Lokelma) cholecalciferol (vitamin D3) 25 25 mcg PO DAILY 11/26/24 01/13/25 History mcg (1,000 unit) capsule d-mannose 3 cap PO DAILY 12/12/24 01/13/25 History rabeprazole 20 mg tablet,delayed 20 mg PO QAM #90 tabs 12/15/24 01/13/25 Rx release (AcipHex) Patient History Medical History History of blood transfusion reaction (~1984) patient states was stopped due to sudden fever and extensive rash Thrombocytopenia chronic to chart review Diabetes Solitary kidney, acquired left Scoliosis of lumbar spine Peripheral neuropathy hands and feet Osteoporosis Osteoarthritis Hx of breast cancer (2022) left-denies limb restriction History of hypertension GERD (gastroesophageal reflux disease) controlled, stable per pt Dyslipidemia DISH (diffuse idiopathic skeletal hyperostosis) Chronic kidney disease (CKD), stage IV (severe) Anxiety History of anemia Episode of syncope 11/13/24 > was seen at [place] [facility] >> r/t hypotension >> eval by pcp, hypertensive medications discontinued, no issues since COPD (chronic obstructive pulmonary disease) pt denies- states rare use of rescue inhaler, mostly if "hot and humid" last used several yrs ago per pt History of COVID-19 (~10/2023) 11/06/23, home test, lingering occasional cough History of renal cell cancer treated surgically. Right nephrectomy 12/12/22 [facility]. 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 Nausea and vomiting after administration of anesthetic agent does well with IV predosing Depression Surgical History Status post left breast lumpectomy (12/20/23) Left Breast Cancer Re-Excision of Margins(Left) - Shandra Celis DO Status post left breast lumpectomy (10/22/23) Left Breast Lumpectomy with Cassie [employer]ish [employer] Operator, Left [place]bert Lymph Node Biopsy(Left) - Shandra Celis, DO History of nephrectomy right History of bilateral tubal ligation History of colonoscopy History of esophagogastroduodenoscopy (EGD) History of repair of pyloric stenosis infancy History of appendectomy with hernia surgery History of tooth extraction partial upper/lower dentures History of bilateral cataract extraction History of bladder surgery bladder tack History of partial hysterectomy Hx of breast reduction, elective 1984 Family History Father Colorectal cancer Cancer Heart disease Hypertension Brother Prostate cancer Myocardial infarction Heart disease Cancer Prostate Mother Uterine cancer Cancer Uterine Heart disease Daughter Clotting disorder Grandmother Diabetes Other No family history of adverse response to anesthesia Denies family history of Ovarian cancer Breast cancer Social History Smoking Status: Never smoker Second Hand Exposure: No; Do You Dip or Chew Tobacco: No; Tobacco Cessation Education Requested by Patient: No Hx Alcohol Use: No Hx Substance Use: No Preferred Language: [place] Communication Ability: Effective Visual Impairment: No Limitations Hearing Ability: Hard of Hearing Job Training Specialist Required: No Beliefs That Will Affect Care: None marital status: Current Living Situation: Spouse current occupational status: retired How many Children do You have: 2 Other Information That Helps Us Care for You: No Feels Safe at Home: Yes Safety Concerns: Feels Safe At This Time Childhood Exposure to Second-Hand Smoke: No Diet: diabetic Diet Comment: diabetic caffeine: Yes during the past year weight has: decreased > 10 lbs Dental Care, Regularly: Yes Physical Activity Frequency: 3-4 Times per Week Seatbelt Use: always Sunscreen Use: Yes Assistive Devices: Cane and Walker Assistive Devices Comment: ROLLATOR Review of Systems Review of Systems: gen - no recent weight change or change in appetite; no fevers HENT - no recent URI; complains of throat pain post-surgery CV - no cp, no orthopnea pulm - no dyspnea, no cough GI - no N/V/abd pain; no recent diarrhea; tendencies towards constipation - recurrent UTIs musculo - chronic low back pain neuro - no headache; chronic radicular pain of legs endo - known diabetic skin - no rash Physical Exam Physical Exam: gen - laying comfortably flat in bed, sleepy but does answer questions, NAD eyes - PERRL HENT - MM dry, mild posterior throat irritation neck - supply, no masses or lymph nodes CV - RRR, s1 s2, no murmur lungs - CTA b/l, no rales abd - soft NT ND BS+ ext - warm, pulses of feet 2+ b/l, no edema neuro - strength handgrip 5/5; hip flexion 5/5; strength ankle dorsiflexion/plantarflexion 5/5 b/l; DTRs very brisk but symmetric upper/lower exts psych - oriented x 3 skin - no rash Results & Data Vital Signs (Past 12 Hours) Vital Signs Temp Pulse Pulse Resp BP Pulse Ox O2 Del Method 01/13/25 12:45 36.4 C L 62 12 171/79 H 99 Room Air 01/13/25 12:30 65 14 162/77 H 100 Room Air 01/13/25 12:15 36.5 C 63 12 151/71 H 100 Nasal Cannula 01/13/25 12:05 66 16 152/76 H 100 Nasal Cannula 01/13/25 11:55 68 14 170/93 H 99 Room Air 01/13/25 11:45 73 12 174/83 H 100 Room Air 01/13/25 11:35 74 12 175/68 H 100 Room Air 01/13/25 11:25 36.7 C 78 12 178/79 H 93 Room Air 01/13/25 06:18 36.8 C 66 20 169/80 H 98 Room Air O2 Flow Rate 01/13/25 12:45 01/13/25 12:30 01/13/25 12:15 3 01/13/25 12:05 3 01/13/25 11:55 01/13/25 11:45 01/13/25 11:35 01/13/25 11:25 01/13/25 06:18 Laboratory Results Laboratory Results - last 24 hr 01/13/25 01/13/25 01/13/25 06:19 11:31 12:54 POC Glucose 128 H 159 H 178 H pre-op labs early Nov 2024 - CBC - Hb 11.7; platelets 119 (baseline) BMP - Cr 1.79 HbA1c - 6.2% PG Care Time/CCT Total # of Minutes Spent Total Time Spent with Patient: Total time spent is greater than 50% in coordination of care (as documented) at patient's floor/unit and/or counseling patient: Coding Level of Care Code 11402 INT INP/OBS CARE 2/55MIN Diagnoses Lumbar stenosis with neurogenic claudication M48.062 T2DM (type 2 diabetes mellitus) E11.9 HTN (hypertension) I10 Thrombocytopenia D69.6 Chronic kidney disease, stage 4 (severe) N18.4 GERD (gastroesophageal reflux disease) K21.9 Dyslipidemia E78.5 COPD (chronic obstructive pulmonary disease) J44.9 History of renal cell cancer Z85.528 Solitary left kidney
[2025-01-13] MEDS: ONDANSETRON INJ 2 MG/ML 2 ML VIAL IV PRN (13:20)
--- NOTE | 2025-01-13 13:44 | Anesthesiology Progress Note ---
Date of Service January 13, 2025 Anesthesia Post Procedure Vital Signs Vital Signs: Temp Pulse Pulse Resp BP Pulse Ox O2 Del Method 01/13/25 13:15 60 16 170/89 H 97 Room Air 01/13/25 12:45 36.4 C L 62 12 171/79 H 99 Room Air 01/13/25 12:30 65 14 162/77 H 100 Room Air 01/13/25 12:15 36.5 C 63 12 151/71 H 100 Nasal Cannula 01/13/25 12:05 66 16 152/76 H 100 Nasal Cannula 01/13/25 11:55 68 14 170/93 H 99 Room Air 01/13/25 11:45 73 12 174/83 H 100 Room Air 01/13/25 11:35 74 12 175/68 H 100 Room Air 01/13/25 11:25 36.7 C 78 12 178/79 H 93 Room Air 01/13/25 06:18 36.8 C 66 20 169/80 H 98 Room Air O2 Flow Rate 01/13/25 13:15 01/13/25 12:45 01/13/25 12:30 01/13/25 12:15 3 01/13/25 12:05 3 01/13/25 11:55 01/13/25 11:45 01/13/25 11:35 01/13/25 11:25 01/13/25 06:18 Pain Intensity Buttock: Pain Intensity: 3 Back: Pain Intensity: 4 Transfer of Care Handoff Completed per policy Notes Mental Status: alert / awake / arousable and participated in evaluation Patient Amnestic to Procedure: Yes Nausea / Vomiting: adequately controlled Pain: adequately controlled Airway Patency, RR, SpO2: stable & adequate BP & HR: stable & adequate Hydration State: stable & adequate Anesthetic Complications: no major complications apparent
[2025-01-13] MEDS: ceFAZolin 1000MG 1,000 MG/7.5 ML SYR IV SCH (16:32)
[2025-01-13] MEDS: INSULIN ASPART PER UNIT CHARGE SC SCH (17:06)
[2025-01-13] MEDS: oxyCODONE/ACETAMINOPHEN 5mg/325mg TAB PO PRN (18:42)
[2025-01-13] MEDS: EZETIMIBE 10 MG TAB PO SCH (21:14)
[2025-01-13] MEDS: DOCUSATE SODIUM/SENNA 50/8.6MG TAB PO SCH (21:14)
[2025-01-14] MEDS: POLYETHYLENE (MIRALAX) 17 GM PACK PO SCH (05:23)
[2025-01-14 06:23] LABS: Calcium 8.9 mg/dl (8.6-10.3); Creatinine Clr Calc Pharmacy 30.5 ml/min; Magnesium 1.7 mg/dl (1.7-2.4); Potassium 4.9 mmol/L (3.5-5.1)
[2025-01-14 06:24] LABS: Hematocrit (blood only) 30.6 % (37.0-47.0); Mean Corpuscular Hgb Conc 32.7 g/dL (32.0-36.0); Mean Corpuscular Volume 94.7 fL (80.0-100.0); Mean Platelet Volume 10.8 fL (9.4-12.4); Platelet Count 87 K/uL (130-400); RDW Coefficient of Variation 12.4 % (11.5-14.5); RDW Standard Deviation 42.9 fL (36.4-46.3); Red Blood Count 3.23 M/uL (4.20-5.40); White Blood Count 8.08 K/ul (4.8-10.8)
--- NOTE | 2025-01-14 08:19 | Hospitalist Progress Note ---
Date of Service January 14, 2025 Assessment & Plan (1) Lumbar stenosis with neurogenic claudication: Plan: s/p L1-L2, L2-L3, L4-L5 Lumbar Laminectomy by Dr Freed 3/. EBL 100cc Stable from medical standpoint post-op. BSGs <200 even with IV steroids given luis carlos-operatively. Defer pain management, disposition/discharge planning to primary ortho team. Plan to check CBC and BMP in am given her chronic thrombocytopenia & CKD to ensure stability. --> plt stable 87, hgb 10.0, acute blood loss anemia from surgery/dilutional aspect suspected. BUN/Cr stable and improved to 25/1.56 compared to pre-op testing Pt reports tendencies towards constipation - primary team has ordered miralax and senna/colace and should be continued on pain medication to ensure no issues 3/5 WBC wnl, hgb 11.7--> 10.0, acute blood loss anemia and suspect some dilutional aspect from IVF. BP borderline but no lightheaded/dizziness (notable hasn't been working w/ therapy yet, also had her HTN meds stopped w/ PCP due to hypotension issues) BP 98/55 and not on HTN meds/dc by primary w/ hypotension issues. Mag 1.7/1gm IV ordered. Potential dc later today if moving bowels/BP improved and no sx w/ therapy vs monitoring overnight and surgery messaged. Discussed given constipation issues/almost sounds like attempts to disimpact at home was agreeable to suppository and will monitor response. Therapy evals pending Suspect benefit from overnight stay to get bowels moving/monitor BP and prevent readmission Will follow if remains inpatient (2) T2DM (type 2 diabetes mellitus): Plan: most recent Hba1c was 6.2% earlier in 2024. she is only on Jardiance at home. ok to hold while here and added loose novolog SSI with BSG checks ac/hs. DM diet. BSGs acceptable/monitor (3) HTN (hypertension): Plan: Patient previously took medicines for such but these were stopped after she was developing hypotension. BPs high post-op, but suspect this is due to pain. BP lower this morning but asymptomatic and currently 102/59 and will monitor (4) Thrombocytopenia: Plan: h/o chronic low platelets baseline is low 100s chronic ITP? other? previous B12/folate levels in the past have been normal repeat CBC in am for stability-- plt 87 & monitoring (5) Chronic kidney disease, stage 4 (severe): Plan: baseline Cr ~1.5 to 2, with most readings 1.7 or 1.8. repeat BMP in am for stability --> BUN/Cr noted above and better than prior lab testing of note - she has solitary left kidney as she had a nephrectomy in the past on the right for renal cell cancer. (6) GERD (gastroesophageal reflux disease): Plan: cont pantoprazole 40mg daily pepcid prn (7) Dyslipidemia: Plan: can continue zetia; hold statin - can resume statin at d/c (8) COPD (chronic obstructive pulmonary disease): Plan: mild she is not on controller agents chronically albuterol prn lungs clear post-op o2 sats wnl post-op, on room air. Incentive spirometer ordered/to be encouraged by nursing (9) History of renal cell cancer: Plan: right kidney s/p nephrectomy in the past (10) Solitary left kidney: Plan: right nephrectomy in the past for renal cell ca; see above Plan Dispo: possible dc later today vs overnight stay Hospitalist service will follow along pending course and f/u in AM if remains inpatient. Please call with any questions/concerns. Admission and Anticipated Discharge Date Admission Date: January 13, 2025 Supervising Physician Co-Signing Physician Notes The patient was not seen by me. The chart was reviewed. Case discussed with YADIEL Jeff. Agree with assessment and plan Subjective Evaluated this morning, sitting in bed. BP borderline but asymptomatic (however not worked w/ therapy yet). Denies flatus, does have +BS on exam. Prior BM yesterday but reports was difficult/using TP to relieve herself. Discussed suppository to stimulate from other end. Potential dc today however is agreeable to stay overnight if needed and will monitor. Urinating without issue/no sx, no tate w/ surgery. Some slight decreased dorsiflexion/plantar flexion on the left, reports has had episodes almost falling at home which scared her/dealing w/ progressive issues for at least a year prior to having current surgery. Questions/concerns addressed, will follow if remains inpatient. Message sent to primary to consider monitoring overnight/BP/bowels/etc. Physical Exam 2 Physical Exam: General: 74yo female sitting up in bed, NAD, stable pain control but needing to move her bowels HEENT: head atraumatic, normocephalic, mm improved, trachea midline Resp: even/unlabored, slight diminished in the bases but no wheezing/rales, 97% on RA CV: RRR, no significant m/r/g, no pitting edema or calf tenderness, pulses present GI:+BS THROUGHOUT, +slight distension but no overt tenderness (but does feel bloated), no guarding/rebound : no tate, voiding spontaneously MSK/Neuro: UE strength equal, slight decreased dorsiflexion/plantar flexion on the left compared to right but NVI/pulses present no confusion, answering questions appropriately, no facial droop/slurred speech Psych:AOx3, cooperative with exam Results & Data Results & Data Vital Signs (Past 12 Hours) Vital Signs Temp Pulse Resp BP BP Pulse Ox O2 Del Method 01/14/25 07:41 37.0 C 68 16 91/56 L 97 Room Air 01/14/25 03:05 37.4 C 74 18 133/61 96 Room Air 01/13/25 22:21 36.7 C 67 18 126/67 98 Room Air Laboratory Results 01/14/25 05:37 01/14/25 05:37 Mag 1.7 PG Care Time/CCT Total # of Minutes Spent Total Time Spent with Patient: Total time spent is greater than 50% in coordination of care (as documented) at patient's floor/unit and/or counseling patient: Coding Level of Care Code 16485 SUB INP/OBS CARE 3/50MIN Diagnoses Lumbar stenosis with neurogenic claudication M48.062 T2DM (type 2 diabetes mellitus) E11.9 HTN (hypertension) I10 Thrombocytopenia D69.6 Chronic kidney disease, stage 4 (severe) N18.4 GERD (gastroesophageal reflux disease) K21.9 Dyslipidemia E78.5 COPD (chronic obstructive pulmonary disease) J44.9 History of renal cell cancer Z85.528 Solitary left kidney
--- NOTE | 2025-01-14 08:28 | Orthopedic Progress Note ---
Date of Service January 14, 2025 Subjective Patient postoperative day 1 from lumbar decompression multilevel. Patient notes distinct improvement in preoperative lower extremity symptomatology, she has some limited incisional symptomatology. Exam reveals limited drainage posteriorly serosanguineous, motor intact. Impression/plan: Postop day 1 from multilevel lumbar decompression with improvement of preoperative symptoms. In talking with the patient, she does have some incisional pain but it is manageable, she expressed a desire to be discharged home as due to the difficulties of getting rest while in the hospital. I related her that if she passes physical therapy, and is cleared by the hospitalist, she can discharge home. She relates she has not had a bowel movement but I expressed that that might not be a necessary criteria for her to discharge home, follow-up in 2 weeks. Review of Systems All systems reviewed & are unremarkable except as noted in HPI & below. Physical Exam . Results & Data Results & Data Laboratory Results . Diagnostic Findings . PG Care Time/CCT Total # of Minutes Spent Total Time Spent with Patient: Total time spent is greater than 50% in coordination of care (as documented) at patient's floor/unit and/or counseling patient: Coding Level of Care Code 59615 Post Operative Follow-Up
[2025-01-14] MEDS: DULoxetine HCL 30 MG CAP PO SCH (08:29)
[2025-01-14] MEDS: PANTOprazole 40 MG TAB PO SCH (08:29)
[2025-01-14] MEDS: MAGNESIUM SULFATE / D5W 1 GM/100 ML BAG IV ONE (09:51)
[2025-01-14] MEDS: bisacodyL 10 MG SUPP PR STA (13:27)
--- NOTE | 2025-01-14 14:24 | Operative Report ---
PG Post Operative Report Pre & Post Diagnosis Operation Date: 01/13/25 07:30 Pre-Op Diagnosis: Lumbar stenosis with neurogenic claudication Post-Op Diagnosis: Lumbar stenosis with neurogenic claudication I identified the patient and participated in the time-out.: Yes Procedure Operation Date: 01/13/25 07:30 Actual Procedures p L1-L2, L2-L3, L4-L5 Lumbar Laminectomy(Not Applicable) - Hari Freed MD Surgeon Hari Freed MD Case Managers Sumanth Blanton Estimated Blood Loss 100 Findings Consistent with Post-Op Diagnosis Specimens None Description of Procedure 1. L1-2 posterior lumbar laminectomy/decompression. (58781) 2. L2-3 posterior lumbar laminectomy/decompression. (55738) 3. L4-5 posterior lumbar laminectomy/decompression. (52626) Patient was taken the operating room and after adequate anesthesia was carefully positioned prone on the Kenroy frame, preprep was performed of the lumbar area. Fluoroscopy was brought in I then marked for the area of the location of the incision relative to the labeled levels, prep and drape was performed. Midline incision was then carried out exposing the interlaminar regions at L1-2, L2-3 and L4-5. Once these levels were exposed and confirmed fluoroscopically, I began the procedure for starting at the L4-5 level, decompression was performed with removal of the majority of spinous process, and then exposed the interlaminar region. He is a combination of curettes and Kerrison punches to thin the ligamentum flavum. I then used a high-speed bur to perform bilateral hemilaminectomies across the inferior laminar edge of L4 and across the superior lamina edge of L5, and bilaterally along the medial wall the facets. With this I then continued to thin and then remove the remaining ligamentum flavum, undercutting the facets bilaterally and decompressing the dura both superiorly inferiorly and decompressing the exiting L4 and L5 nerve roots. Upon completion, Floseal was applied no issues were noted, I then moved to the superior 2 levels. At L1-2 and L2-3 similar procedure was performed with removal of the inferior aspect of the spinous process, hemilaminectomies, along with thinning and then removing the thickened ligamentum flavum. The canal was decompressed with undercutting the facets along with partial medial facetectomies and decompressing the exiting nerve roots at L1, L2 and L3. Upon completion both these levels were decompressed adequately, no issues were noted. The operative site was irrigated followed by then placing Floseal in the decompression areas followed by vancomycin powder. The operative site was closed using 0 Vicryl sutures and 1-2 layers, 2-0 Vicryl sutures and mario for the skin. Sterile dressing was applied, the patient tolerated procedure well was taken recovery room in satisfactory condition. I attest to the content of the Intraoperative Record and any orders documented therein. Any exceptions are noted below.
[2025-01-14 14:58] VITALS: RESP 16
--- NOTE | 2025-01-14 15:13 | Discharge Summary ---
Date of Service January 14, 2025 Admission HPI (Per Admitting) 11/26/24 OV: Patient returns for follow-up, she is status post her lumbar MRI from November 23, continued lower extremity symptoms with diffuse numbness and tingling with any kind of ambulation. She notes no other new changes. No changes in examination, no focal motor weakness, no pain in the lower lumbar spine. Review of MRI images from November 23, 2024 from [facility], is my separate interpretation, this reveals the patient to have degenerative changes throughout the lumbar spine, there is areas of significant stenosis worse at L4-5 with thickened ligamentum flavum broad-based disc bulging and facet arthropathy severe. There is lesser degrees of stenosis at the L2-3 and L3-4 levels and in the lateral recess region at L5-S1. L1-2 though has combination of facet arthropathy and epidural lipomatosis contributing to what I consider significant stenosis at the upper end of the lumbar canal. Impression: Multilevel lumbar degenerative changes with multiple levels of stenosis to varying degrees. Plan: Today I reviewed the imaging studies with the patient and her in great detail went over the findings and using a model explain the structures involved in house related to her symptoms. At this time I told the patient I would recommend that she consider operative intervention as the stenosis I think is contributing to the symptoms she is having. I reviewed each level, and I feel it be reasonable and appropriate to consider a posterior lumbar decompression at L1-2 and L4-5 to create more room in the canal, the other levels do have some degree of stenosis but I do not think it is noteworthy and we will see what she gets with that this more limited surgery. The hospital and postoperative course were discussed along with potential risk complications including but not exclusive to chance of neurologic injury, infection, dural leakage, need for additional surgeries at some point in the future. In addition the patient has 1 kidney removed, we will have her undergo medical evaluation. I noted to her that the MRI reveals some hemangiomas but no evidence of any tumor in this region, they are in agreement with this plan over to get her scheduled in the near future. 12/24/24 OV: Patient presents today with upcoming surgery in January, posterior lumbar decompression at L1-2 and L4-5, potentially to include L2-3. She notes no change in her symptomatology. No changes in examination, no focal motor weakness noted on today's visit. Impression: Multilevel lumbar stenosis with neurogenic claudication. I explained to the patient the overall surgical goal of the surgery, she had a number of questions relative the hospital and postoperative course and I answered these questions, we will see the patient back postoperatively 2 weeks later. Admission Exam (Per Admitting) 11/10/24 OV: Exam reveals the patient to stand independently, she does hold on the table and he can raise up focal weakness. While sitting she had 1/4 knee reflexes trace ankle reflexes, intact motor strength groups tested, negative straight leg raise for specific lower extremity symptoms, some low back pain on exam. 4 views lumbar spine taken upright today's office reveal patient to have her 15 degrees of levoscoliosis when measuring from L4-T12, there is grade 1 anterolisthesis of L5 on S1 but reasonable maintenance of disc height at this level, some degenerative changes are present at the thoracolumbar junction. EMG report by Dr. Kumar from April 26, 2023 reveals the patient to have poorly localized lower lumbosacral radiculopathy bilateral, no evidence of polyneuropathy or myopathy. Review of MRI images lumbar spine from [facility] from August 26, 2022, is my separate interpretation, this reveals multilevel degenerative changes throughout and moderate canal stenosis mild to moderate range from L1 down to the L4 level but at L4-5 there is severe stenosis. Principal Diagnosis Same as "Discharge Diagnosis" noted below under Discharge Instructions. Discharge Exam . Exam reveals limited drainage posteriorly serosanguineous, motor intact. Discharge Data Consultations 01/13/25 11:31 Consult Hospitalist Routine Procedures Performed Operation Date: 01/13/25 07:30 Actual Procedures p L1-L2, L2-L3, L4-L5 Lumbar Laminectomy(Not Applicable) - Hari Freed MD Ordered Studies 01/13/25 07:30 FL spine 1V any level Routine Hospital Course (1) S/P lumbar laminectomy: (2) Status post lumbar spine surgery for decompression of spinal cord: (3) Lumbar stenosis with neurogenic claudication: (4) Degenerative spondylolisthesis: Plan On January 13, 2025 Abby arrived at [facility] operating room and underwent L1-L2, L2-L3, L4-L5 Lumbar Laminectomy and decompression without complications. Patient had general anesthesia for the procedure. Patient was admitted to the general orthopedic floor in stable condition postoperatively for pain control and mobilization with physical therapy; they safely and properly performed the ADL tasks demonstrated by PT/OT and met all goals. Pain was controlled with oral pain medication alone. She had no issues with taking the Percocet/oxycodone while inpatient, even though she has nausea and vomiting listed as an "allergy". Preoperative radicular component symptoms have resolved. They worked with therapy, vital signs were acceptable, no need for transfusion, deemed safe for discharge. Patient was then discharged home in stable condition, with self-care and assistance from her . Patient will follow-up with Dr. Freed in the orthospine clinic in approximately 2 weeks, as scheduled, for postoperative care. PG Care Time/CCT Total # of Minutes Spent Total Time Spent with Patient: Total time spent is greater than 50% in coordination of care (as documented) at patient's floor/unit and/or counseling patient: Discharge Plan Discharge Items Patient Disposition: Home - Self-Care Reason For Visit: Lumbar Stenosis with Neurogenic Claudication, Dege Discharge Diagnosis: s/p lumbar laminectomy and decompression Activity: Per Instructions section Lifting: No more than 10 pounds Bathing: May shower/bathe in 3 days Weightbearing: Full weightbearing Non-emergency contact: Surgeon Call non-emergency contact if: your pain is worsening, your temperature is above 101 and your wound has increased drainage Follow-up/Referrals: Analia Puga DO [Primary Care Provider] - Hari Freed MD [Surgeon] - (as scheduled on 01/28/25 @ 15:10) Diet: Regular Addtl Attending Provider Instructions: May shower on 3rd day after surgery. You can wash the incision and surgical site with soap and water briefly and then blot dry with a clean towel/cloth. Cover with a new, sterile dry dressing. If unable to change your dressing, then leave hospital dressing intact and cover the area for showering. Do NOT soak incision. No strenuous activity, lifting, or exercise until further instructed. Use the prescribed pain medication, or [id number] Tylenol, as needed for pain relief -- follow directions on the bottle; limit Tylenol to 4,000 mg maximum in a 24-hour period. Pending Studies at Discharge: No Stand-Alone Forms: Appform[employer], Smoking Cessation Medications and DC Order Prescriptions: New oxycodone 5 mg tablet 5 - 10 mg PO Q6H PRN (Reason: pain) Qty: 28 0RF Continued cholecalciferol (vitamin D3) 25 mcg (1,000 unit) capsule 25 mcg PO DAILY PreserVision AREDS 4,296 mcg-226 mg-90 mg capsule 1 cap PO BID calcium citrate 500 mg tablet, effervescent 1,200 mg PO DAILY Jardiance 10 mg tablet 10 mg PO QAM Qty: 90 2RF simvastatin 40 mg tablet 40 mg PO QPM Qty: 90 1RF ezetimibe [Zetia] 10 mg tablet 10 mg PO HS Qty: 90 2RF (DME) walker Misc See Rx Instructions .Route Qty: 1 0RF Rx Instructions: ROLLATOR WALKER WITH BREAKS AND SEAT duloxetine 30 mg capsule,delayed release(DR/EC) 30 mg PO DAILY Qty: 90 2RF Lokelma 10 gram powder in packet 10 g PO .COMPLEX Rx Instructions: 10 grams orally; Once a week albuterol sulfate [Ventolin HFA] 90 mcg/actuation HFA aerosol inhaler See Rx Instructions inhalation .COMPLEX PRN (Reason: shortness of breath or wheezing) Qty: 18 0RF Rx Instructions: 1-2 puffs inhalation 1 puff INH every 4-6 hrs; PRN; (DME) tvCompass true metrix test strips 0 .Route .MEDSUPPLY ferrous sulfate 325 mg (65 mg iron) tablet 325 mg PO DAILY Hold Instructions: 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
[2025-01-15 07:23] VITALS: O2SAT 94
[2025-01-15 07:42] LABS: BUN Creatinine Ratio 17.8 (10-20); Calcium 8.4 mg/dl (8.6-10.3); Creatinine Clr Calc Pharmacy 27.3 ml/min; Magnesium 1.9 mg/dl (1.7-2.4); Potassium 4.7 mmol/L (3.5-5.1)
--- NOTE | 2025-01-15 08:11 | Orthopedic Progress Note ---
Date of Service January 15, 2025 Assessment & Plan (1) S/P lumbar laminectomy: Dressing changed last night. Pain controlled. Continue d/c planning: d/c home today. It is not unusual for her to not have a bowel movement for several days she said. Prefers to be at home. She will call the office if needed. Follow up as scheduled with Dr Freed. Subjective .74 year old patient POD 2 from lumbar laminectomy with Dr. Freed, doing fairly well. Pain controlled. Had some bloody drainage from the incision area last night and dressing changed by staff. No numbness or tingling, or radicular pain. Hasn't had a bowel movement yet, but states that is not too uncommon for her. No abdominal pain. Review of Systems All systems reviewed & are unremarkable except as noted in HPI & below. Physical Exam . alert and oriented. NAD. VSS. eating breakfast presently dressing clean, dry, intact. abdomen: soft/nontender able to dorsiflex and plantarflex, strength 5/5. Sensation intact Results & Data Results & Data Laboratory Results . Diagnostic Findings . PG Care Time/CCT Total # of Minutes Spent Total Time Spent with Patient: Total time spent is greater than 50% in coordination of care (as documented) at patient's floor/unit and/or counseling patient: Coding Level of Care Code 29046 Post Operative Follow-Up Diagnoses S/P lumbar laminectomy Z98.890
--- NOTE | 2025-01-15 08:53 | XRay Report ---
KUB HISTORY: eval ileus COMPARISON STUDY: None FINDINGS: Stable midline skin mario. There is mild retained stool. No significant bowel distention seen. No gross free air. IMPRESSION: No acute findings. ACT 112: Negative or not required by law. The above report was generated using voice recognition software. It may contain grammatical, syntax o r spelling errors. Electronically signed by: Carlton Liao M.D. 01/15/2025 8:52 AM
--- NOTE | 2025-01-15 09:00 | Hospitalist Progress Note ---
Date of Service January 15, 2025 Assessment & Plan (1) Lumbar stenosis with neurogenic claudication: Plan: s/p L1-L2, L2-L3, L4-L5 Lumbar Laminectomy by Dr Freed 3/. EBL 100cc Stable from medical standpoint post-op. BSGs <200 even with IV steroids given luis carlos-operatively. Defer pain management, disposition/discharge planning to primary ortho team. Plan to check CBC and BMP in am given her chronic thrombocytopenia & CKD to ensure stability. --> plt stable 87, hgb 10.0, acute blood loss anemia from surgery/dilutional aspect suspected. BUN/Cr stable and improved to 25/1.56 compared to pre-op testing Pt reports tendencies towards constipation - primary team has ordered miralax and senna/colace and should be continued on pain medication to ensure no issues 3/5 WBC wnl, hgb 11.7--> 10.0, acute blood loss anemia and suspect some dilutional aspect from IVF. BP borderline but no lightheaded/dizziness (notable hasn't been working w/ therapy yet, also had her HTN meds stopped w/ PCP due to hypotension issues) BP 98/55 and not on HTN meds/dc by primary w/ hypotension issues. Mag 1.7/1gm IV ordered. Potential dc later today if moving bowels/BP improved and no sx w/ therapy vs monitoring overnight and surgery messaged. Discussed given constipation issues/almost sounds like attempts to disimpact at home was agreeable to suppository and will monitor response. Therapy evals pending Suspect benefit from overnight stay to get bowels moving/monitor BP and prevent readmission 3/6 KUB this morning w/o ileus/obstruction and now passing little more gas. Review w/ significant retained stool however and w/ her chronic constipation and back surgery w/ risk for ileus/obstruction discuss w/ patient and nursing about fleets enema which she was agreeable to and to be provided. - if increased flatus/BM can plan for discharge per primary service but highly suspect benefit from BM prior to dc. Discussed/highly encouraged continuing bowel regimen at dc to prevent constipation issues with ongoing pain control Please call hospitalist with any questions/concerns. (2) T2DM (type 2 diabetes mellitus): Plan: A1c 6.2 most recently, on Jardiance at home which has been held inpatient BSG AC/HS and SSI with acceptable BSGs and can resume home meds at dc (3) HTN (hypertension): Plan: Prior stopped all BP meds w/ hypotension. BP 104/66 off all and asymptomatic. Outpt f/u (4) Thrombocytopenia: Plan: h/o chronic low platelets, baseline 100s. chronic ITP? other? previous B12/folate levels in the past have been normal repeat CBC in am for stability-- plt 87 & some minor bleeding from incision today but no sx. Can f/u PCP (5) Chronic kidney disease, stage 4 (severe): Plan: baseline Cr ~1.5 to 2, with most readings 1.7 or 1.8. Cr 1.56 and denies any issues w/ urination of note - she has solitary left kidney as she had a nephrectomy in the past on the right for renal cell cancer. (6) GERD (gastroesophageal reflux disease): Plan: cont pantoprazole 40mg daily pepcid prn (7) Dyslipidemia: Plan: can continue zetia; hold statin - can resume statin at d/c (8) COPD (chronic obstructive pulmonary disease): Plan: mild she is not on controller agents chronically albuterol prn lungs clear post-op o2 sats wnl post-op, on room air. Incentive spirometer ordered/to be encouraged by nursing and remains on RA (9) History of renal cell cancer: Plan: right kidney s/p nephrectomy in the past (10) Solitary left kidney: Plan: right nephrectomy in the past for renal cell ca; see above Plan Dispo: plans for dc following enema if BM/increased flatus without issues w/ recs for ongoing bowel regimen w/ pain control at dc. Hospitalist service will sign off at this time. Please call with any questions/concerns. Admission and Anticipated Discharge Date Admission Date: January 13, 2025 Supervising Physician Co-Signing Physician Notes The patient was not seen by me. The chart was reviewed. Case discussed with YADIEL Jeff. Agree with assessment and plan Subjective Eval this morning. Went down for KUB, just passing a little more gas since returning. Discussed KUB results and review and preference to give enema prior to dc to help stimulate and if increased flatus and/or BM can plan for dc later today. No fever/chills, cp or shortness of breath. No nausea/vomiting. Questions/concerns addressed at this time. Encouraged continued bowel regimen at dc while on pain medications. Physical Exam 2 Physical Exam: General: 74yo female sitting up in bed, NAD, HEENT: head atraumatic, normocephalic, mmm, trachea midline Resp: even/unlabored, no tachypnea/wheezing, on RA CV: RRR, no significant m/r/g, no pitting edema or calf tenderness, pulses present GI:+BS, +distension/palpable stool L hemicolon, no overt tenderness/guarding but does feel bloated : no tate, voiding spontaneously MSK/Neuro: UE strength equal, equal plantar/dorsiflexion, NVI no confusion, answering questions appropriately, no facial droop/slurred speech Psych:AOx3, cooperative with exam Results & Data Results & Data Vital Signs (Past 12 Hours) Vital Signs Temp Pulse Resp BP BP Pulse Ox O2 Del Method 01/15/25 07:22 37 C 76 16 104/66 94 Room Air 01/15/25 07:00 37 C 76 16 104/66 94 Room Air 01/14/25 21:19 37 C 76 16 111/63 93 Room Air Laboratory Results 01/14/25 05:37 01/15/25 06:13 Diagnostic Findings KUB X-Ray 01/15/25 07:47 KUB HISTORY: eval ileus COMPARISON STUDY: None FINDINGS: Stable midline skin mario. There is mild retained stool. No significant bowel distention seen. No gross free air. IMPRESSION: No acute findings. ACT 112: Negative or not required by law. The above report was generated using voice recognition software. It may contain grammatical, syntax or spelling errors. Electronically signed by: Carlton Liao M.D. 01/15/2025 8:52 AM PG Care Time/CCT Total # of Minutes Spent Total Time Spent with Patient: Total time spent is greater than 50% in coordination of care (as documented) at patient's floor/unit and/or counseling patient: Coding Level of Care Code 79979 SUB INP/OBS CARE 2/35MIN Diagnoses Lumbar stenosis with neurogenic claudication M48.062 T2DM (type 2 diabetes mellitus) E11.9 HTN (hypertension) I10 Thrombocytopenia D69.6 Chronic kidney disease, stage 4 (severe) N18.4 GERD (gastroesophageal reflux disease) K21.9 Dyslipidemia E78.5 COPD (chronic obstructive pulmonary disease) J44.9 History of renal cell cancer Z85.528 Solitary left kidney
[2025-01-15] MEDS: SOD PHOSPHATE/SOD BIPHOSPHATE ENEMA 132 ML BTL PR STA (10:13)
[2025-01-15 13:31] VITALS: BP 100/61; PULSE 78; TEMP 98.8
== END 2025-01-15 14:55 | disposition home or self-care (01) ==
LOC: ASU 05:58 → 3W 05:58